=== PATIENT | female | born 2000 | race African-American/Black ===

== ENCOUNTER 2024-04-13 01:31 | Inpatient (IN) | payer MEDICAID, OTHER ==
[~2024-04-13] VITALS: Ht 157.5 cm; Wt 82.4 kg
[2024-04-13] MEDS ORDERED: ALBUTEROL SULF 2.5 MG/0.5ML(0.5%) NEB SOLN NEB ONE (01:45)
[2024-04-13] MEDS: IPRATROPIUM BROM 0.5 MG/2.5ML INH SOL NEB ONE ×2 (02:09→02:58)
[2024-04-13] MEDS: LEVALBUTEROL HCL 1.25 MG/3 ML NEB ONE ×2 (02:09→03:12)
[2024-04-13] MEDS: methylPREDNISolone SOD SUCC 125 MG/2 ML VL IM ONE (02:22)
[2024-04-13] MEDS: AZITHROMYCIN 250 MG TAB PO ONE (02:23)
[2024-04-13] MEDS: LEVALBUTEROL HCL 1.25 MG/3 ML NEB NEB STA (02:59)
[2024-04-13] MEDS: IPRATROPIUM BROM 0.5 MG/2.5ML INH SOL ONE (03:12)
[2024-04-13 04:10] VITALS: BP 123/82; TEMP 98.2
[2024-04-13 04:38] LABS: Urine Bacteria None Seen /hpf (None Seen)
[2024-04-13] MEDS: METOPROLOL TARTRATE 1MG/1ML-5ML VIAL IV ONE (04:45)
[2024-04-13] MEDS ORDERED: ONDANSETRON HCL 4 MG/2 ML VIAL IV PRN (04:45)
[2024-04-13] MEDS ORDERED: MORPHINE SULFATE INJ 2 MG/ml SYRG IV PRN (04:45)
[2024-04-13] MEDS ORDERED: NITROGLYCERIN 0.4 MG SL TAB SL PRN (04:45)
[2024-04-13] MEDS ORDERED: ACETAMINOPHEN 325 MG TAB PO PRN (04:45)
[2024-04-13 04:54] LABS: Urine Blood Negative /uL (Negative); Urine Clarity Clear (Clear); Urine Color Colorless (Yellow); Urine Protein, UAD Negative (Negative); Urine Specific Gravity 1.006 (1.001-1.035); Urine Urobilinogen Normal (Negative); Urine WBC <1 /hpf (0 - 5)
[2024-04-13 04:56] LABS: Amphetamine Screen, Urine Neg (NEGATIVE); Barbiturate Scree,Urine Neg (NEGATIVE); Benzodiazephine Screen, Urine Neg (NEGATIVE)
[2024-04-13 04:57] LABS: Cannabinoid Screen, Urine Neg (NEGATIVE); Opiate Scree,Urine Neg (NEGATIVE); Phencyclidine Screen, Urine Neg (NEGATIVE)
[2024-04-13 05:15] VITALS: PULSE 122; RESP 24; O2SAT 92
[2024-04-13 05:23] LABS: Cocaine Screen, Urine Neg (NEGATIVE)
[2024-04-13] MEDS ORDERED: LEVALBUTEROL HCL 1.25 MG/3 ML NEB NEB SCH (06:00)
[2024-04-13] MEDS ORDERED: SODIUM CHLOR 0.9% PF (SALINE LOCK) 10ML VIAL/SYR IV SCH (06:00)
[2024-04-13] MEDS ORDERED: ALBUTEROL SULF 2.5 MG/0.5ML(0.5%) NEB SOLN NEB PRN (06:00)
[2024-04-13] MEDS ORDERED: THROAT LOZENGES(CEPASTAT) MT PRN (06:00)
[2024-04-13 06:44] LABS: Alanine Aminotransferase 14 U/L (7-40); Albumin 4.8 g/dL (3.2-4.8); Alkaline Phosphatase 94 U/L (46-116); Anion Gap 10 (5-15); Aspartate Aminotransferase 14 U/L (13-40); BUN/Creatinine Ratio 7.2 (10.0-20.0); Bilirubin, Total 0.4 mg/dL (0.2-1.0); Blood Urea Nitrogen 7 mg/dL (9-23); Calcium 10.1 mg/dL (8.7-10.4); Carbon Dioxide 21 mmol/L (20-31); Chloride 109 mmol/L (98-107); Glucose 113 mg/dL (74-106); Potassium 3.5 mmol/L (3.5-5.1); Sodium 140 mmol/L (136-145); Total Protein 7.8 g/dL (5.7-8.2)
[2024-04-13] MEDS ORDERED: predniSONE 20 MG TAB PO SCH (10:00)
== END 2024-04-13 05:55 | disposition left against medical advice (07) | DRG 133 ==
LOC: ER 01:31 → TELE 04:35
PROVIDERS: ADMIT Internal Medicine; ATTEND Internal Medicine
DX: J96.01 Acute respiratory failure with hypoxia (principal); J45.901 Unspecified asthma with (acute) exacerbation; E66.9 Obesity, unspecified; J06.9 Acute upper respiratory infection, unspecified; Z82.5 Family history of asthma and other chronic lower respiratory diseases; Z68.33 Body mass index [BMI] 33.0-33.9, adult
CPT/HCPCS: 36415; 71045; 80053; 80307; 81001; 81025; 82306; 82607; 83036; 84443; 84702; 85379; 94640; 96372; 99291; G0378

== ENCOUNTER 2024-04-20 20:56 | Emergency (ER) | payer MEDICAID ==
[~2024-04-20] VITALS: Ht 157.5 cm; Wt 80.5 kg
[2024-04-20 21:47] VITALS: BP 147/88; PULSE 139; RESP 18; O2SAT 91
--- NOTE | 2024-04-20 21:48 | ED.PDOC ---
SOB-HPI HPI Comments HPI: Poor Historian. 23-year-old female presents to the emergency department for evaluation of worsening shortness of breath/asthma for the last week that got worse in the last 2 hours. Her pulse ox here initially was 89% at room air. Patient has associated cough and congestion. Patient was admitted to the hospital approximately a week ago and she left against medical advice without any medications. Denies any other acute symptoms. Past Medcial History: Asthma Past Surgical History: Denies any REVIEW OF SYSTEMS: CONSTITUTIONAL: Denies acute: fever, diaphoresis, chills, generalized weakness. HEAD: Denies acute: headache, photophobia Eyes: Denies acute: Double vision, vision loss, eye pain, eye discharge. EARS: Denies acute: tinnitus, hearing loss, ear discharge, ear pain, THROAT: Denies acute: sore throat, swelling, difficulty swallowing , pain with swallowing, change in voice. NECK: Denies acute: neck pain, neck swelling, stiff neck. HEART: Denies acute : chest pain, palpitations, LUNGS: Denies acute: wheezing, hemoptysis ABDOMEN: Denies acute: abdominal pain, Nausea, Vomiting, diarrhea, melena , hematemesis, hematochezia SKIN: Denies acute: rash, redness, lesions, itchiness. EXTREMITIES: Denies acute: calf pain, numbness, tingling, weakness, denies pain in extremity. Denies acute: Low back pain. Neuro: Denies acute: focal neurological deficit, motor or sensory focal neurological deficit, tremors, seizure like activity, confusion, dizziness, change in mental status, loss of bowel or bladder function, cauda equina like symptoms. : Denies acute: dysuria, hematuria, flank pain, increase in urinary frequency. PSYCH: Denies acute: hallucination, suicidal ideation, homicidal ideation. FEMALE: Denies acute: abnormal vaginal bleeding, foul odor, unusual discharge. PHYSICAL EXAM: General: no acute distress, awake and alert. Head: normocephalic, atraumatic. Neck: supple, trachea is midline, no swelling. Throat: Normal phonation. Eyes:, no erythema, no purulent discharge, no proptosis, no icterus. Heart: regular tachycardic, no significant murmur appreciated. Lungs: Mild apparent respiratory distress, Able to speak in full sentences. Bilateral wheezing, bilateral rhonchi, no crackles. No stridors Abdomen: non tender to palpation, non distended, soft, no guarding, no rebound, + bowel sounds. Neuro: Awake, Alert, oriented to name, self, situation, follows commands GCS=15. Speech is normal. Skin: no petechia, no purpura, no cyanosis, non-pale, not jaundice. Lower extremities: --no - Pitting edema no deformity, no focal swelling, no calf TTP. Makes eye contact. moves all four extremities. Face: no apparent facial droop. Ambulating in the ED independently. 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 Asthma, Cardiac tamponade, infection.) X-Ray, Labs, Meds, VS Vital Signs Date Time Temp Pulse Resp B/P (MAP) Pulse Ox O2 Delivery O2 Flow Rate FiO2 04/21/24 01:28 20 90 Room Air* 0 21 04/20/24 22:03 22 95 Nasal Cannula* 3 32 04/20/24 21:47 139 18 147/88 (107) 91 04/20/24 21:47 139 18 91 Nasal Cannula* 2 28 04/20/24 21:25 98.8 139 18 147/88 (107) 91 04/20/24 21:25 24 91 Room Air* 0 21 Lab Test 04/20/24 23:00 04/20/24 22:05 04/20/24 21:52 Range/Units Troponin I High Sensitivity < 3 L < 3 L </=34 ng/L Urine Color Colorless Yellow Urine Clarity Clear Clear Urine pH 6.0 5.0-9.0 Urine Specific [place] 1.013 1.001-1.035 Urine Protein Negative Negative Urine Ketones 1+ H Negative Urine Blood Negative Negative /uL Urine Nitrite Negative Negative Urine Bilirubin Negative Negative Urine Urobilinogen Normal Negative mg/dL Urine Leukocyte Esterase 2+ Negative /uL Urine RBC 2 0 - 4 /hpf Urine WBC 15 0 - 5 /hpf Urine Squamous Epithelial Cells Few <5 /hpf Urine Bacteria None seen None Seen /hpf Urine Mucus Few None Seen Urine Glucose Normal Normal mg/dL Urine Opiates Screen Neg NEGATIVE Urine Fentanyl Screen Neg NEGATIVE Urine Barbiturates Screen Neg NEGATIVE Urine Phencyclidine Screen Neg NEGATIVE Urine Amphetamines Screen Neg NEGATIVE Urine Benzodiazepines Screen Neg NEGATIVE Urine Cocaine Screen Neg NEGATIVE Urine Cannabinoids Screen Neg NEGATIVE White Blood Count 7.1 4.4-10.8 10^3/uL Red Blood Count 5.20 4.0-5.20 10^6/uL Hemoglobin 15.0 12.2-16.2 g/dL Hematocrit 44.6 36.0-46.0 % Mean Corpuscular Volume 85.8 80.0-100.0 fL Mean Corpuscular Hemoglobin 28.9 28.0-32.0 pg Mean Corpuscular Hemoglobin Concent 33.6 32.0-36.0 g/dL Red Cell Distribution Width 15.4 H 11.8-14.3 % Platelet Count 273 140-450 10^3/uL Mean Platelet Volume 9.9 6.9-10.8 fL Neutrophils (%) (Auto) 64.6 37.0-80.0 % Lymphocytes (%) (Auto) 24.2 10.0-50.0 % Monocytes (%) (Auto) 5.2 0.0-12.0 % Eosinophils (%) (Auto) 5.2 0.0-7.0 % Basophils (%) (Auto) 0.8 0.0-2.0 % Neutrophils # (Auto) 4.6 1.6-8.6 10 ^3/uL Lymphocytes # (Auto) 1.7 0.4-5.4 10 ^3/uL Monocytes # (Auto) 0.4 0-1.3 10 ^3/uL Eosinophils # (Auto) 0.4 0-0.8 10 ^3/uL Basophils # (Auto) 0.1 0-0.2 10 ^3/uL Nucleated Red Blood Cells 0.2 % Sodium Level 139 136-145 mmol/L Potassium Level 3.9 3.5-5.1 mmol/L Chloride Level 107 98-107 mmol/L Carbon Dioxide Level 23 20-31 mmol/L Anion Gap 9 5-15 Blood Urea Nitrogen 10 9-23 mg/dL Creatinine 1.01 0.550-1.02 mg/dL Glomerular Filtration Rate Calc 81 >90 mL/min BUN/Creatinine Ratio 9.9 L 10.0-20.0 Serum Glucose 93 74-106 mg/dL Calcium Level 10.3 8.7-10.4 mg/dL Magnesium Level 2.1 1.6-2.6 mg/dL Total Bilirubin 0.4 0.2-1.0 mg/dL Aspartate Amino Transferase (AST) 15 13-40 U/L Alanine Aminotransferase (ALT) 15 7-40 U/L Alkaline Phosphatase 103 46-116 U/L B-Type Natriuretic Peptide < 0 0-100 pg/mL Total Protein 8.6 H 5.7-8.2 g/dL Albumin 5.2 H 3.2-4.8 g/dL Beta HCG, Quantitative < 0.0 L 1.5-4.2 mIU/mL Current Medications Medications (Trade) Dose Ordered Sig/Neno Route Start Time Stop Time Status Last Admin Albuterol (Ventolin Medneb) 2.5 mg ONCE ONCE NEB 04/20/24 21:45 04/20/24 21:46 DC 04/20/24 22:02 Ipratropium [place] (Atrovent Medneb) 1 mg ONCE ONCE NEB 04/20/24 21:45 04/20/24 21:46 DC 04/20/24 22:02 Methylprednisolone Sodium Succinate (Solu Medrol) 125 mg ONCE ONCE IV 04/20/24 21:45 04/20/24 21:46 DC 04/20/24 22:29 Sodium Chloride 1,000 ml @ 1,000 mls/hr Q1H ONCE IV 04/20/24 21:45 04/20/24 22:44 DC 04/20/24 22:29 Albuterol (Ventolin Medneb) 2.5 mg ONCE ONCE NEB 04/21/24 01:15 04/21/24 01:16 DC 04/21/24 01:27 Ipratropium [place] (Atrovent Medneb) 1 mg ONCE ONCE NEB 04/21/24 01:15 04/21/24 01:16 DC 04/21/24 01:27 Time of 1ST Reevaluation: 01:13 Reevaluation 1ST: Improved Time of 2ND Reevaluation: 01:47 (Patient was reassessed again her pulse ox is 91% at rest after the 2nd breathing treatment. I suspect patient's pulse ox will drop by minimal movement. Patient is still tachycardic in the 130s. We offered the patient admission to the hospital but she refused and wants to leave against medical advice.) Reevaluation 2ND: Unchanged Patient Education/Counseling: Diagnosis, Treatment Family Education/Counseling: No Family Present Comments Patient was offered admission to the hospital but she wants to be discharged home. She feels significantly better. She has been without her medication for awhile. She has a follow up appointment coming up next week Patient is leaving against medical advice. Patient presented with the above HPI.--asthma/dyspnea----workup was initiated. patient was found with the above mentioned diagnosis. Patient was given: DuoNeb treatment and Solu-Medrol. Patient is said to leave against medical advice. All the reports of any imaging studies that were ordered by myself were reviewed by myself. Departure 1 Departure Time of Disposition: 00:24 Impression: Primary Impression: Acute asthma exacerbation Additional Impressions: Tachycardia Left against medical advice Disposition: 07 LEFT AGAINST MEDICAL ADVICE Condition: Guarded Additional Instructions: You are leaving against medical advice. Seek medical attention [facility]. Return to the emergency department if you change your mind. Take your medications as prescribed. Follow up with the PCP [facility]. e-Prescriptions Prednisone (Prednisone) 20 Mg Tab 20 MG PO DAILY for 5 Days, #5 TAB Prov: JUANA NORTON DO 04/21/24 Albuterol Sulfate (Albuterol Sulfate Hfa) 108 Mcg/Act Aer 108 MCG IN Q4HPRN PRN for 20 Days, #1 AER Prov: JUANA NORTON DO 04/21/24 Discharged With: Self Critical Care Note Critical Care Time?: Yes (45 min-critical care time only) Heart Score Heart Score: Heart Score Response (Comments) Value History N/A 0 EKG N/A 0 Age N/A 0 Risk Factors N/A 0 Troponin N/A 0 Total 0 JUANA NORTON DO Apr 20, 2024 21:48
[2024-04-20] MEDS: ALBUTEROL SULF 2.5 MG/0.5ML(0.5%) NEB SOLN NEB ONE (22:02)
[2024-04-20] MEDS: IPRATROPIUM BROM 0.5 MG/2.5ML INH SOL NEB ONE (22:02)
[2024-04-20 22:11] LABS: Basophils # (auto) 0.1 10 ^3/uL (0-0.2); Basophils % (auto) 0.8 % (0.0-2.0); Eosinophils # (auto) 0.4 10 ^3/uL (0-0.8); Eosinophils % (auto) 5.2 % (0.0-7.0); Hematocrit 44.6 % (36.0-46.0); Lymphocytes # (auto) 1.7 10 ^3/uL (0.4-5.4); Lymphocytes % (auto) 24.2 % (10.0-50.0); Mean Corpuscular Hemoglobin 28.9 pg (28.0-32.0); Mean Corpuscular Hgb Conc. 33.6 g/dL (32.0-36.0); Mean Corpuscular Volume 85.8 fL (80.0-100.0); Monocytes # (auto) 0.4 10 ^3/uL (0-1.3); Monocytes % (auto) 5.2 % (0.0-12.0); Neutrophils # (auto) 4.6 10 ^3/uL (1.6-8.6); Neutrophils % (auto) 64.6 % (37.0-80.0); Nucleated Red Blood Cells % 0.2 %; Platelet Count (auto) 273 10^3/uL (140-450); Red Cell Distribution Width 15.4 % (11.8-14.3); White Blood Cell 7.1 10^3/uL (4.4-10.8)
[2024-04-20 22:17] LABS: Alanine Aminotransferase 15 U/L (7-40); Albumin 5.2 g/dL (3.2-4.8); Alkaline Phosphatase 103 U/L (46-116); Anion Gap 9 (5-15); Aspartate Aminotransferase 15 U/L (13-40); BUN/Creatinine Ratio 9.9 (10.0-20.0); Blood Urea Nitrogen 10 mg/dL (9-23); Calcium 10.3 mg/dL (8.7-10.4); Carbon Dioxide 23 mmol/L (20-31); Chloride 107 mmol/L (98-107); Glucose 93 mg/dL (74-106); Magnesium 2.1 mg/dL (1.6-2.6); Potassium 3.9 mmol/L (3.5-5.1); Sodium 139 mmol/L (136-145)
[2024-04-20 22:18] LABS: Bilirubin, Total 0.4 mg/dL (0.2-1.0); Total Protein 8.6 g/dL (5.7-8.2)
[2024-04-20] MEDS: methylPREDNISolone SOD SUCC 125 MG/2 ML VL IV ONE (22:29)
[2024-04-20] MEDS: SODIUM CHLORIDE 0.9% 1,000 ML IV ONE (22:29)
--- NOTE | 2024-04-20 23:23 | DVH ---
CHEST RADIOGRAPH Indication:sob Technique: Single frontal view of the chest was obtained Comparison: XY CHEST XRAY 1 VIEW on DOS: 04/13/24 FINDINGS: Lines and Tubes: None Lungs: No focal consolidation. Pleura: No effusion. No pneumothorax. Cardiomediastinal contours: Unremarkable Bones: No acute osseous abnormality. IMPRESSION: No acute cardiopulmonary disease.
[2024-04-21 00:14] LABS: Urine Bacteria None Seen /hpf (None Seen)
[2024-04-21 00:23] LABS: Urine Blood Negative /uL (Negative); Urine Clarity Clear (Clear); Urine Color Colorless (Yellow); Urine Mucus FEW (None Seen); Urine Protein, UAD Negative (Negative); Urine Specific Gravity 1.013 (1.001-1.035); Urine Urobilinogen Normal (Negative); Urine WBC 15 /hpf (0 - 5)
[2024-04-21 00:29] LABS: Amphetamine Screen, Urine Neg (NEGATIVE); Barbiturate Scree,Urine Neg (NEGATIVE); Benzodiazephine Screen, Urine Neg (NEGATIVE); Cannabinoid Screen, Urine Neg (NEGATIVE); Cocaine Screen, Urine Neg (NEGATIVE); Opiate Scree,Urine Neg (NEGATIVE); Phencyclidine Screen, Urine Neg (NEGATIVE)
[2024-04-21] MEDS ORDERED: PRED20TA2 PO (00:34)
[2024-04-21] MEDS ORDERED: ALBU108A5 IN (00:34)
[2024-04-21] MEDS: ALBUTEROL SULF 2.5 MG/0.5ML(0.5%) NEB SOLN ONE (01:23)
[2024-04-21] MEDS: IPRATROPIUM BROM 0.5 MG/2.5ML INH SOL ONE (01:23)
[2024-04-21] MEDS: ALBUTEROL SULF 2.5 MG/0.5ML(0.5%) NEB SOLN NEB ONE (01:27)
[2024-04-21] MEDS: IPRATROPIUM BROM 0.5 MG/2.5ML INH SOL NEB ONE (01:27)
[2024-04-21 01:28] VITALS: RESP 20; O2SAT 90
== END 2024-04-21 01:46 | disposition left against medical advice (07) ==
LOC: ER 20:56
DX: J45.901 Unspecified asthma with (acute) exacerbation (principal); R10.2 Pelvic and perineal pain; R00.0 Tachycardia, unspecified; Z53.29 Procedure and treatment not carried out because of patient's decision for other reasons
CPT/HCPCS: 36415; 71045; 80053; 80307; 81001; 83735; 83880; 84484; 84702; 85025; 94640; 96361; 96374; 99284; J2919; J7030

== ENCOUNTER 2024-04-22 11:28 | Emergency (ER) | payer MEDICAID ==
[~2024-04-22] VITALS: Ht 157.5 cm; Wt 80.5 kg
[~2024-04-22 11:28] MED LIST: ALBU108A5 IN; PRED20TA2 PO
[2024-04-22] MEDS: IPRATROPIUM BROM 0.5 MG/2.5ML INH SOL ONE (12:01)
[2024-04-22] MEDS: methylPREDNISolone SOD SUCC 125 MG/2 ML VL IM ONE (12:27)
[2024-04-22] MEDS: IPRATROPIUM BROM 0.5 MG/2.5ML INH SOL HHN ONE (12:29)
[2024-04-22] MEDS: ALBUTEROL SULF 2.5 MG/0.5ML(0.5%) NEB SOLN HHN ONE (12:30)
[2024-04-22 12:31] VITALS: BP 100/69; PULSE 80; RESP 20; TEMP 98.1; O2SAT 99
== END 2024-04-22 13:43 | disposition home or self-care (01) ==
LOC: ER 11:28
DX: J45.901 Unspecified asthma with (acute) exacerbation (principal)
CPT/HCPCS: 94640; 96372; 99283; J2919

== ENCOUNTER 2025-04-16 18:25 | Inpatient (IN) | payer MEDICAID ==
[~2025-04-16] VITALS: Ht 157.5 cm; Wt 82.1 kg
[2025-04-16] MEDS: IPRATROPIUM BROM 0.5 MG/2.5ML INH SOL NEB ONE (18:48)
[2025-04-16] MEDS: ALBUTEROL SULF 2.5 MG/0.5ML(0.5%) NEB SOLN NEB ONE ×2 (18:48→21:24)
--- NOTE | 2025-04-16 19:35 | DVH ---
CHEST RADIOGRAPH Indication: SHORTNESS OF BREATH Technique: Frontal and lateral view of the chest was obtained Comparison: XY CHEST PORTABLE on DOS: 04/20/24, XY CHEST XRAY 1 VIEW on DOS: 04/13/24 FINDINGS: Lines and Tubes: None Lungs: Increased interstitial prominence. This may represent pulmonary vascular congestion and/or vir al pneumonia. Pleura: No effusion. No pneumothorax. Cardiomediastinal contours: Unremarkable Bones: Unremarkable IMPRESSION: Increased interstitial prominence. This may represent pulmonary vascular congestion and/or viral pneumonia.
[2025-04-16 19:46] VITALS: PULSE 128; RESP 24; O2SAT 93
[2025-04-16 20:28] LABS: Hematocrit 45.9 % (36.0-46.0); Hemoglobin 15.4 g/dL (12.2-16.2); Mean Corpuscular Hemoglobin 30.3 pg (28.0-32.0); Mean Corpuscular Volume 90.2 fL (80.0-100.0); Nucleated Red Blood Cells % 0.1 %
[2025-04-16 20:36] LABS: Sodium 143 mmol/L (136-145)
[2025-04-16 20:37] LABS: Anion Gap 14 (5-15); Calcium 9.2 mg/dL (8.7-10.4)
--- NOTE | 2025-04-16 20:39 | ED.PDOC ---
History of Present Illness HPI Comments 24 y/o F presents with boyfriend for c/c of shortness of breath. Patient reports on history of asthma with at-home albuterol inhaler and nebulizer use and having sudden and unprovoked onset of asthma exacerbation, today. She comments on using her at-home inhaler 3x, today, with no relief or improvement. Patient reports associated recent nonproductive cough and lower back pain. No endorsed known sick contact exposure, strenuous activities, stressors, travel, or further pertinent medical or surgical history. Denial of any chest pain, congestion, fever, chills, or additional acute symptoms. Upon arrival to ED, patient had a temperature of 99.7 F, pulse rate of 132, respiratory rate 24, blood pressure 125/94, and a pulse ox 90% on room air. At time of assessment, patient was on 3 L of oxygen via nasal canula. REVIEW OF SYSTEMS: General: No fever, no chills, or fatigue HEENT: No sore throat, no earache, no congestion, no neck pain. Cardiac: No chest pain. No palpitations. Lungs: Shortness of breath, nonproductive cough GI: No nausea, no vomiting, no diarrhea, no constipation, no abdominal pain : No dysuria, frequency, or urgency. No hematuria. Musculoskeletal: Lower back pain, no joint pain, no joint swelling, no extremity edema. Skin: No rash, no itching. Neuro: No headache, no dizziness, no weakness PHYSICAL EXAM: General: Awake, alert and oriented. No acute distress. Skin: Skin in warm, dry and intact. Appropriate color for ethnicity. HEENT: The head is normocephalic and atraumatic. Conjunctivae are clear without exudates or hemorrhage. Sclera is non-icteric. EOM are intact. No signs of nystagmus. Eyelids are normal in appearance without swelling or lesions. Oral mucosa is pink and moist Neck: The neck is supple with normal range of motion. No JVD. Cardiac: Heart rate and rhythm are normal. No murmurs, gallops, or rubs are auscultated. Respiratory: Wheezing in bilateral lung paige. Otherwise, no signs of respiratory distress. Lung sounds are clear in all lobes bilaterally without rales or rhonchi. Abdominal: Abdomen is soft, non-tender without distention, guarding or rigidity. Bowel sounds are present and normoactive in all four quadrants. Extremities: Upper and lower extremities are atraumatic in appearance without deformity or edema. Neurological: The patient is awake, alert and oriented to person, place, and time with normal speech. Speech is clear. There is no facial asymmetry. Psychiatric: Appropriate mood and affect. Good judgement and insight. Chief Complaint: Asthma Time Seen by MD: 19:45 Reviewed Notes: Nurses Notes, Medications, Allergies Allergies: Coded Allergies: NO KNOWN ALLERGIES (Unverified , 04/13/24) Home Meds Active Scripts Prednisone (Prednisone) 20 Mg Tab, 20 MG PO DAILY for 4 Days, #4 MG Prov:RACHELE DE LUNA MD 04/16/25 Albuterol Sulfate (Albuterol Sulfate) 0.083 % Neb, 1 VIAL NEB Q4HPRN PRN for 5 Days, #5 VIAL Prov:RACHELE DE LUNA MD 04/16/25 Prednisone (Prednisone) 20 Mg Tab, 20 MG PO DAILY for 5 Days, #5 TAB Prov:JUANA NORTON DO 04/21/24 Albuterol Sulfate (Albuterol Sulfate Hfa) 108 Mcg/Act Aer, 108 MCG IN Q4HPRN PRN for 20 Days, #1 AER Prov:JUANA NORTON DO 04/21/24 Information Source: Patient Mode of Arrival: Ambulatory Severity: Moderate Timing: Hours Duration: Since onset Prehospital treatment: Breathing Tx (At-home prescribed medications) Past Medical History PAST MEDICAL HISTORY: Asthma Surgical History: Denies all surgeries SNOW FENCE ERECTOR History: Denies all SNOW FENCE ERECTOR Hx Family History Family History: Unknown Social History Smoker: Non-Smoker Alcohol: Denies ETOH Use Drugs: Denies Drug Use Lives In: Home Was a procedure done? Was a procedure done?: No Differential Dx Considerations may include: Differential diagnoses considered includebut arenot limited to acute Bronchitis, Asthma, COPD, Pneumothorax, PE, CHF, Pulmonary HTN, Anemia, CO Poisoning, Methemoglobinemia, Hyperventilation, Metabolic Acidosis, Pulmonary Edema, Pneumonia, ACS, Pericardial Tamponade, Anxiety, other X-Ray, Labs, Meds, VS Vital Signs Date Time Temp Pulse Resp B/P (MAP) Pulse Ox O2 Delivery O2 Flow Rate FiO2 04/16/25 21:25 20 92 Nasal Cannula* 2 28 04/16/25 19:46 128 24 93 Nasal Cannula* 2 28 04/16/25 19:45 99.8 134 24 141/90 (107) 92 99.8 04/16/25 18:49 20 96 Nasal Cannula* 3 32 04/16/25 18:28 99.7 132 24 125/94 90 99.7 Lab Test 04/16/25 20:19 04/16/25 20:06 Range/Units Influenza Type A Antigen Negative Negative Influenza Type B Antigen Negative Negative SARS-CoV-2 Antigen (Rapid) Negative NEGATIVE White Blood Count 7.0 4.4-10.8 10^3/uL Red Blood Count 5.08 4.0-5.20 10^6/uL Hemoglobin 15.4 12.2-16.2 g/dL Hematocrit 45.9 36.0-46.0 % Mean Corpuscular Volume 90.2 80.0-100.0 fL Mean Corpuscular Hemoglobin 30.3 28.0-32.0 pg Mean Corpuscular Hemoglobin Concent 33.6 32.0-36.0 g/dL Red Cell Distribution Width 15.4 H 11.8-14.3 % Platelet Count 193 140-450 10^3/uL Mean Platelet Volume 10.3 6.9-10.8 fL Neutrophils (%) (Auto) 84.6 H 37.0-80.0 % Lymphocytes (%) (Auto) 9.2 L 10.0-50.0 % Monocytes (%) (Auto) 4.5 0.0-12.0 % Eosinophils (%) (Auto) 1.2 0.0-7.0 % Basophils (%) (Auto) 0.5 0.0-2.0 % Neutrophils # (Auto) 5.9 1.6-8.6 10 ^3/uL Lymphocytes # (Auto) 0.6 0.4-5.4 10 ^3/uL Monocytes # (Auto) 0.3 0-1.3 10 ^3/uL Eosinophils # (Auto) 0.1 0-0.8 10 ^3/uL Basophils # (Auto) 0 0-0.2 10 ^3/uL Nucleated Red Blood Cells 0.1 % Sodium Level 143 136-145 mmol/L Potassium Level 3.5 3.5-5.1 mmol/L Chloride Level 110 H 98-107 mmol/L Carbon Dioxide Level 19 L 20-31 mmol/L Anion Gap 14 5-15 Blood Urea Nitrogen 7 L 9-23 mg/dL Creatinine 1.00 0.550-1.02 mg/dL Glomerular Filtration Rate Calc 82 >90 mL/min BUN/Creatinine Ratio 7.0 L 10.0-20.0 Serum Glucose 75 74-106 mg/dL Calcium Level 9.2 8.7-10.4 mg/dL Current Medications Medications (Trade) Dose Ordered Sig/Neno Route Start Time Stop Time Status Last Admin Albuterol (Ventolin Medneb) 2.5 mg ONCE ONCE NEB 04/16/25 18:45 04/16/25 18:46 DC 04/16/25 18:48 Ipratropium [place] (Atrovent Medneb) 0.5 mg ONCE ONCE NEB 04/16/25 18:45 04/16/25 18:46 DC 04/16/25 18:48 Albuterol (Ventolin Medneb) 5 mg ONCE ONCE NEB 04/16/25 21:15 04/16/25 21:16 DC 04/16/25 21:24 Dexamethasone Sodium Phosphate (Decadron Injection) 10 mg ONCE ONCE IM 04/16/25 21:15 04/16/25 21:16 DC 04/16/25 21:30 Ketorolac Tromethamine (Toradol Injection) 30 mg ONCE ONCE IM 04/16/25 21:15 04/16/25 21:16 DC 04/16/25 21:30 [place] [id number] Ph: [phone] DIAGNOSTIC IMAGING Diagnostic Imaging Report : [id number] Signed PATIENT: GLENIS DURAN ACCT: [id number] UNIT: [id number] : 2000 LOC: ER ROOM / BED: / AGE / SEX: 24 / F ADM STATUS: REG ER SERVICE 174 ORDERING PHYSICIAN: RACHELE DE LUNA MD PROCEDURE(s): CXR2 - CHEST TWO VIEWS ROUTINE REASON: SHORTNESS OF BREATH ORDER NUMBER(s): [id number], ACCESSION NUMBER(s): [id number] CHEST RADIOGRAPH Indication: SHORTNESS OF BREATH Technique: Frontal and lateral view of the chest was obtained Comparison: XY CHEST PORTABLE on DOS: 04/20/24, XY CHEST XRAY 1 VIEW on DOS: 04/13/24 FINDINGS: Lines and Tubes: None Lungs: Increased interstitial prominence. This may represent pulmonary vascular congestion and/or viral pneumonia. Pleura: No effusion. No pneumothorax. Cardiomediastinal contours: Unremarkable Bones: Unremarkable IMPRESSION: Increased interstitial prominence. This may represent pulmonary vascular congestion and/or viral pneumonia. ATED BY: HONG LINTON MD DICTATED DATE/TIME: 04/16/251932 SIGNED BY: HONG LINTON MD SIGNED DATE/TIME: 04/16/251932 CC: Time of 1ST Reevaluation: 20:15 Reevaluation 1ST: Unchanged Patient Education/Counseling: Treatment, Need For Follow Up Family Education/Counseling: Treatment, Need For Follow Up SEPSIS Sepsis Screen Date sepsis recognized/suspect: Apr 16, 2025 Time Sepsis recognized/suspect: 183 Recent Procedure: No On Antibiotic Therapy: No Respiratory Rate >20: Yes Heart Rate >90: Yes Temp<36 C (96.8 F) or >38.3 C: No SBP <90 or MAP <65 mmHG: No New Acute Mental Status Change: No Is the patient on CPAP, BIPAP,: No Physician Orders Chest Two Views Routine (04/16/25 19:08) Vital Signs Date Time Temp Pulse Resp B/P (MAP) Pulse Ox O2 Delivery O2 Flow Rate FiO2 04/16/25 21:25 20 92 Nasal Cannula* 2 28 04/16/25 19:46 128 24 93 Nasal Cannula* 2 28 04/16/25 19:45 99.8 134 24 141/90 (107) 92 99.8 04/16/25 18:49 20 96 Nasal Cannula* 3 32 04/16/25 18:28 99.7 132 24 125/94 90 99.7 Laboratory Tests Test 04/16/25 20:06 White Blood Count 7.0 10^3/uL (4.4-10.8) Medications Medications Dose Ordered Sig/Neno Route Start Time Stop Time Status Last Admin Dose Admin Albuterol 2.5 mg ONCE ONCE NEB 04/16/25 18:45 04/16/25 18:46 DC 04/16/25 18:48 Albuterol 5 mg ONCE ONCE NEB 04/16/25 21:15 04/16/25 21:16 DC 04/16/25 21:24 Dexamethasone Sodium Phosphate 10 mg ONCE ONCE IM 04/16/25 21:15 04/16/25 21:16 DC 04/16/25 21:30 Ipratropium [place] 0.5 mg ONCE ONCE NEB 04/16/25 18:45 04/16/25 18:46 DC 04/16/25 18:48 Ketorolac Tromethamine 30 mg ONCE ONCE IM 04/16/25 21:15 04/16/25 21:16 DC 04/16/25 21:30 Departure 1 Departure Time of Disposition: 21:50 Impression: Primary Impression: Acute asthma Disposition: HOME / SELF CARE / HOMELESS Condition: Stable e-Prescriptions Prednisone (Prednisone) 20 Mg Tab 20 MG PO DAILY for 4 Days, #4 MG Prov: RACHELE DE LUNA MD 04/16/25 Albuterol Sulfate (Albuterol Sulfate) 0.083 % Neb 1 VIAL NEB Q4HPRN PRN for 5 Days, #5 VIAL Prov: RACHELE DE LUNA MD 04/16/25 Discharged With: Significant Other (Boyfriend ) Comments MDM: Patient well-appearing, nontoxic. Patient reports her breathing is improved and back to baseline prior to discharge. Advised prompt follow-up with PCP, return to the ED with any new, worsening or concerning symptoms. Extensive evaluation was performed in attempt to identify or rule out: (See differential diagnosis section) The following tests were ordered, and results were reviewed by me and discussed with patient: (See diagnostic results section) The following test were independently interpreted by me: N/A I reviewed and agreed with the following test results read by other providers: Chest x-ray I reviewed the following notes from the pt's past medical encounters: April 13, 2024, April 20, 2024, and April 22, 2024 encounters for asthma, acute asthma exacerbation, and hypertensive urgency, respectively Decision regarding hospitalization or escalation of hospital level of care: Risks and benefits of admission for further treatment of patient's condition was considered however due to patient's stable condition patient will be discharged to follow up closely or return to care for worsening of condition or inability to follow up. Critical Care Note Critical Care Time?: No Stability Stability form required: No Heart Score Heart Score: Heart Score Response (Comments) Value History N/A 0 EKG N/A 0 Age N/A 0 Risk Factors N/A 0 Troponin N/A 0 Total 0 I personally scribed for RACHELE DE LUNA MD ([email or web address]) on 04/16/25 at 20:39. Electronically submitted by Joey Lindsay ([email or web address]). I personally scribed for RACHELE DE LUNA MD ([email or web address]) on 04/16/25 at 21:35. Electronically submitted by Joey Lindsay ([email or web address]). RACHELE DE LUNA MD Apr 16, 2025 20:39
[2025-04-16 20:42] LABS: BUN/Creatinine Ratio 7.0 (10.0-20.0); Glucose 75 mg/dL (74-106)
[2025-04-16 20:47] LABS: Blood Urea Nitrogen 7 mg/dL (9-23); Carbon Dioxide 19 mmol/L (20-31); Chloride 110 mmol/L (98-107); Potassium 3.5 mmol/L (3.5-5.1)
[2025-04-16 21:06] LABS: COVID19 ANTIGEN SOFIA FIA NEGATIVE (NEGATIVE)
[2025-04-16] MEDS: KETOROLAC TROMETH 30 MG/ML 1ML VIAL IM ONE (21:30)
[2025-04-16] MEDS ORDERED: PRED20TA2 PO (21:55)
[2025-04-16] MEDS ORDERED: ALBU0.084 NEB (21:55)
[2025-04-16] MEDS ORDERED: ACETAMINOPHEN 325 MG TAB PO PRN (23:15)
[2025-04-16] MEDS: SODIUM CHLORIDE 0.9% 1,000 ML IV ONE (23:15)
[2025-04-16] MEDS: SODIUM CHLORIDE 0.9% 1,500 ML IV ONE (23:15)
--- NOTE | 2025-04-16 23:42 | DVHHPRES ---
History of Present Illness Resident Creating Document: GAMA CASTANEDA History of Present Illness Patient is a 24-year-old female with past medical history of asthma, presented to [facility] ED with complaint of shortness of breath, cough and upper back pain that began suddenly around today 5:00 p.m. while sitting at home. This is her 4th episode of asthma exacerbation. She used her inhaler three times and a nebulizer at home without improvement. She reports having flu- like symptoms and a cold two days ago, along with watery diarrhea occurring three times per day for the past three days, which may have triggered the asthma exacerbation. She denies chest pain, congestion, fever, chills, sick contacts, recent travel, stressors, or strenuous activity. No other pertinent medical or surgical history is reported. Upon arrival to ED, patient had a temperature of 99.7 F, pulse rate of 132, respiratory rate 24, blood pressure 125/94, and a pulse ox 90% on room air. At time of assessment, patient was on 2 L of oxygen via nasal canula. The patient was started on breathing treatment and IV fluids. Patient is admitted for further evaluation and management. Pulmonary: Asthma Past Surgical History: None Family History: None ALCOHOL: none Drugs: Marijuana Lives: with Family Past Social History Social & Personal history: Smoking 6 years, <1 pack. Alcohol: denies. Drug: Marijuana 6 years. Review of Systems Review of Systems Eyes: No Pain, No Vision change, No Conjunctivae inflammation, No Eyelid inflammation, No Other, No Redness ENT: No Ear pain, No Ear discharge, No Nose pain, No Nose discharge, No Nose congestion, No Mouth pain, No Mouth swelling, No Throat pain, No Throat swelling, No Other Cardiovascular: No Chest Pain, No Palpitations, No Orthopnea, No Paroxysmal No Dyspnea, No Edema, No Lt Headedness, No Other Respiratory: Cough, No Dry, Shortness of breath, No SOB with exertion, No Wheezing, No Hemoptysis, No Pleuritic Pain, No Sputum, No Other Gastrointestinal: No Nausea, No Vomiting, No Abdominal Pain, Diarrhea, No Constipation, No Melena, No Hematochezia, No Other Genitourinary: No Dysuria, No Frequency, No Incontinence, No Hematuria, No Retention, No Other Musculoskeletal: No other, No neck pain, No shoulder pain, No arm pain, upper back pain, No hand pain, No leg pain, No foot pain Skin: No Rash, No Lesions, No Jaundice, No Bruising, No Other Allergies: Coded Allergies: NO KNOWN ALLERGIES (Unverified , 04/13/24) Exam Vital Signs Vital Signs Date Time Temp Pulse Resp B/P (MAP) Pulse Ox O2 Delivery O2 Flow Rate FiO2 04/16/25 23:05 98.5 107 20 123/90 (101) 94 98.5 04/16/25 21:25 Nasal Cannula* 2 28 Exam General Appearance: Cooperative. Well developed. Well nourished. NAD Head Exam: Normal inspection Neck Exam: Normal inspection. Non-tender. Normal alignment Pulmonary/Respiratory: Chest non-tender. Clear bilateral breath sounds, no crackles, wheezing in bilateral lung paige. Cardiovascular/Chest: Regular rate and rhythm. No murmurs. No JVD. Peripheral Pulses: 2+ Radial (R). 2+ Radial (L). 2+ Pedal (R). 2+ Pedal (L) Abdominal Exam: Normal bowel sounds. Soft. normal abdomen, no visible veins, Nontender. No hepatospenomegaly. No masses Ankle Exam: Negative ankle edema Lower extremities: Negative lower extremity edema Neuro/Mental Status: A&O x4. Coherent. Thoughts/Psych: Normal thought pattern. Appropriate mood and affect. Good judgement and insight Skin Exam: Normal inspection. Normal color. Warm. Dry Labs/Xrays Labs Test 04/16/25 20:19 04/16/25 20:06 Range/Units Influenza Type A Antigen Negative Negative Influenza Type B Antigen Negative Negative SARS-CoV-2 Antigen (Rapid) Negative NEGATIVE White Blood Count 7.0 4.4-10.8 10^3/uL Red Blood Count 5.08 4.0-5.20 10^6/uL Hemoglobin 15.4 12.2-16.2 g/dL Hematocrit 45.9 36.0-46.0 % Mean Corpuscular Volume 90.2 80.0-100.0 fL Mean Corpuscular Hemoglobin 30.3 28.0-32.0 pg Mean Corpuscular Hemoglobin Concent 33.6 32.0-36.0 g/dL Red Cell Distribution Width 15.4 H 11.8-14.3 % Platelet Count 193 140-450 10^3/uL Mean Platelet Volume 10.3 6.9-10.8 fL Neutrophils (%) (Auto) 84.6 H 37.0-80.0 % Lymphocytes (%) (Auto) 9.2 L 10.0-50.0 % Monocytes (%) (Auto) 4.5 0.0-12.0 % Eosinophils (%) (Auto) 1.2 0.0-7.0 % Basophils (%) (Auto) 0.5 0.0-2.0 % Neutrophils # (Auto) 5.9 1.6-8.6 10 ^3/uL Lymphocytes # (Auto) 0.6 0.4-5.4 10 ^3/uL Monocytes # (Auto) 0.3 0-1.3 10 ^3/uL Eosinophils # (Auto) 0.1 0-0.8 10 ^3/uL Basophils # (Auto) 0 0-0.2 10 ^3/uL Nucleated Red Blood Cells 0.1 % Sodium Level 143 136-145 mmol/L Potassium Level 3.5 3.5-5.1 mmol/L Chloride Level 110 H 98-107 mmol/L Carbon Dioxide Level 19 L 20-31 mmol/L Anion Gap 14 5-15 Blood Urea Nitrogen 7 L 9-23 mg/dL Creatinine 1.00 0.550-1.02 mg/dL Glomerular Filtration Rate Calc 82 >90 mL/min BUN/Creatinine Ratio 7.0 L 10.0-20.0 Serum Glucose 75 74-106 mg/dL Calcium Level 9.2 8.7-10.4 mg/dL SEPSIS Sepsis Screen Date sepsis recognized/suspect: Apr 16, 2025 Time Sepsis recognized/suspect: 1831 Recent Procedure: No On Antibiotic Therapy: No Respiratory Rate >20: Yes Heart Rate >90: Yes Temp<36 C (96.8 F) or >38.3 C: No SBP <90 or MAP <65 mmHG: No New Acute Mental Status Change: No Is the patient on CPAP, BIPAP,: No Physician Orders Chest Two Views Routine (04/16/25 19:08) Admit (04/16/25 23:02) Allergies (04/16/25 23:02) Code Status (04/16/25 23:02) Oxygen Per Hour (04/16/25 23:02) Complete Blood Count (04/17/25 04:00) Comprehensive Metabolic Panel (04/17/25 04:00) Condition: Serious (04/16/25 23:02) Acetaminophen Tablet (Tylenol Tablet) (04/16/25 23:15) Oxygen By Nasal Cannula (04/16/25 23:02) Stat Ekg For Chest Pain (04/16/25 23:02) Notify Of Changes From Base (04/16/25 23:02) C Winforms Developer For 24 Hours (04/16/25 23:02) Emergency Dysrhythmia Protocol (04/16/25 23:02) Rhythm Strips Once Every Shift (04/16/25 23:02) Urinalysis (04/16/25 23:02) Drug Screen (04/16/25 23:02) Ipratropium Medneb (Atrovent Medneb) (04/17/25 06:00) Respiratory Culture W/ Gs (04/16/25 23:02) Hepatic Panel (04/16/25 23:02) Magnesium (04/16/25 23:02) Methylprednisolone Sod Succ (Solu Medrol (04/17/25 10:00) Azithromycin 500mg/ 250ml (Zithromax 50 (04/17/25 10:00) Azithromycin 500mg/ 250ml (Zithromax 50 (04/16/25 23:15) Thyroid Stimulating Hormone (04/16/25 23:02) Sodium Chloride 0.9% (04/16/25 23:15) NS (04/16/25 23:15) Regular Diet (04/17/25 Breakfast) Levalbuterol Hcl (Xopenex Medneb) (04/17/25 06:00) Lactic Acid W/ Reflex Order (04/16/25 23:02) Levalbuterol Hcl (Xopenex Medneb) (04/16/25 23:15) Ipratropium Medneb (Atrovent Medneb) (04/16/25 23:15) Budesonide (Inhalation) (Pulmicort) (04/16/25 23:15) Blood Culture (04/16/25 23:02) Vital Signs Date Time Temp Pulse Resp B/P (MAP) Pulse Ox O2 Delivery O2 Flow Rate FiO2 04/16/25 23:05 98.5 107 20 123/90 (101) 94 98.5 04/16/25 21:25 20 92 Nasal Cannula* 2 28 04/16/25 19:46 128 24 93 Nasal Cannula* 2 28 04/16/25 19:45 99.8 134 24 141/90 (107) 92 99.8 04/16/25 18:49 20 96 Nasal Cannula* 3 32 04/16/25 18:28 99.7 132 24 125/94 90 99.7 Laboratory Tests Test 04/16/25 20:06 White Blood Count 7.0 10^3/uL (4.4-10.8) Medications Medications Dose Ordered Sig/Neno Route Start Time Stop Time Status Last Admin Dose Admin Albuterol 2.5 mg ONCE ONCE NEB 04/16/25 18:45 04/16/25 18:46 DC 04/16/25 18:48 2.5 MG Albuterol 5 mg ONCE ONCE NEB 04/16/25 21:15 04/16/25 21:16 DC 04/16/25 21:24 5 MG Dexamethasone Sodium Phosphate 10 mg ONCE ONCE IM 04/16/25 21:15 04/16/25 21:16 DC 04/16/25 21:30 10 MG Ipratropium [place] 0.5 mg ONCE ONCE NEB 04/16/25 18:45 04/16/25 18:46 DC 04/16/25 18:48 0.5 MG Ketorolac Tromethamine 30 mg ONCE ONCE IM 04/16/25 21:15 04/16/25 21:16 DC 04/16/25 21:30 30 MG Assessment/Plan Assessment/Plan Acute asthma exacerbation Acute hypoxic respiratory failure Pneumonia likely due to gram +/- bacterial or viral Sepsis likely due to above Metabolic acidosis Tylenol 650 mg p.o. q6h Azithromycin 500 mg / 250 mL IV Budesonide 0.5 mg neb once Levalbuterol 1.25 MG q4h Ipratropium 0.5 MG q4h Methylprednisone 40 MG IV bid IV NS 100 MLS/HR lactic acid urinalysis TSH Mg hepatic panel Blood culture Sputum culture Diet: Regular Goals of care: Full code, discussed for >16 minutes on 04/16/25 Plan discussed with patient Plan discussed with Dr. Quintero Plan discussed with: Patient My Orders Orders - GAMA CASTANEDA Procedure Category Date Status Time Admit ADMIT 04/16/25 Transmitted 23:02 Allergies KIRBY 04/16/25 Transmitted 23:02 Code Status CODE 04/16/25 Transmitted 23:02 Oxygen Per Hour RT 04/16/25 Transmitted 23:02 Complete Blood Count LAB 04/17/25 Verified 04:00 Comprehensive LAB 04/17/25 Verified Metabolic Panel 04:00 Condition: Serious KIRBY 04/16/25 Transmitted 23:02 Acetaminophen Tablet PHA 04/16/25 Transmitted (Tylenol Tablet) 23:15 Oxygen By Nasal RT 04/16/25 Transmitted Cannula 23:02 Stat Ekg For Chest KIRBY 04/16/25 Transmitted Pain 23:02 Notify Of Changes KIRBY 04/16/25 Transmitted From Base 23:02 C Winforms Developer For [facility] 04/16/25 Transmitted 24 Hours 23:02 Emergency Dysrhythmia KIRBY 04/16/25 Transmitted Protocol 23:02 Rhythm Strips Once KIRBY 04/16/25 Transmitted Every Shift 23:02 Urinalysis LAB 04/16/25 Transmitted 23:02 Drug Screen LAB 04/16/25 Transmitted 23:02 Ipratropium Medneb PHA 04/17/25 Transmitted (Atrovent Medneb) 06:00 Respiratory Culture ADRIÁN 04/16/25 Transmitted W/ Gs 23:02 Hepatic Panel LAB 04/16/25 Transmitted 23:02 Magnesium LAB 04/16/25 Transmitted 23:02 Methylprednisolone PHA 04/17/25 Transmitted Sod Succ (Solu Medrol 10:00 Azithromycin 500mg/ PHA 04/17/25 Transmitted 250ml (Zithromax 50 10:00 Azithromycin 500mg/ PHA 04/16/25 Transmitted 250ml (Zithromax 50 23:15 Thyroid Stimulating LAB 04/16/25 Transmitted Hormone 23:02 Sodium Chloride 0.9% PHA 04/16/25 Transmitted 23:15 NS PHA 04/16/25 Transmitted 23:15 Regular Diet DIET 04/17/25 Transmitted Breakfast Levalbuterol Hcl PHA 04/17/25 Transmitted (Xopenex Medneb) 06:00 Lactic Acid W/ Reflex LAB 04/16/25 Transmitted Order 23:02 Levalbuterol Hcl PHA 04/16/25 Transmitted (Xopenex Medneb) 23:15 Ipratropium Medneb PHA 04/16/25 Transmitted (Atrovent Medneb) 23:15 Budesonide PHA 04/16/25 Transmitted (Inhalation) 23:15 Blood Culture ADRIÁN 04/16/25 Transmitted 23:02 Date of Service: Apr 16, 2025 Billing Provider: DIMA QUINTERO MD Common Visit Codes: [id number] INP/OBS CARE (HIGH) GAMA CASTANEDA RESIDENT Apr 16, 2025 23:42
[2025-04-17] VITALS (18 sets, daily range): BP systolic 114–148; BP diastolic 58–98; PULSE 95–129; RESP 18–27; TEMP 97.5–98.5; O2SAT 92–100
[2025-04-17] MEDS: IPRATROPIUM BROM 0.5 MG/2.5ML INH SOL NEB ONE
[2025-04-17] MEDS: LEVALBUTEROL HCL 1.25 MG/3 ML NEB NEB ONE
[2025-04-17] MEDS: BUDESONIDE (INHALATION) 0.5 MG/2 ML NEB NEB ONE
[2025-04-17 00:25] LABS: Alanine Aminotransferase 16.0 U/L (7-40); Alkaline Phosphatase 93.0 U/L (46-116); Bilirubin, Direct 0.2 mg/dL (<0.3); Bilirubin, Total 0.5 mg/dL (0.2-1.0); Magnesium 2.0 mg/dL (1.6-2.6)
[2025-04-17 00:26] LABS: Albumin 5.1 g/dL (3.2-4.8); Total Protein 8.3 g/dL (5.7-8.2)
[2025-04-17] MEDS: AZITHROMYCIN 500MG/ 250ML 250 ML IV ONE (02:20)
[2025-04-17 04:36] LABS: Hematocrit 43.3 % (36.0-46.0); Hemoglobin 14.9 g/dL (12.2-16.2); Mean Corpuscular Hemoglobin 31.3 pg (28.0-32.0); Mean Corpuscular Volume 90.8 fL (80.0-100.0); Nucleated Red Blood Cells % 0.0 %
[2025-04-17 04:53] LABS: Alanine Aminotransferase 13 U/L (7-40); Alkaline Phosphatase 85 U/L (46-116); Anion Gap 14 (5-15); BUN/Creatinine Ratio 8.2 (10.0-20.0); Bilirubin, Total 0.5 mg/dL (0.2-1.0); Calcium 9.8 mg/dL (8.7-10.4); Potassium 3.6 mmol/L (3.5-5.1); Sodium 140 mmol/L (136-145)
[2025-04-17 04:59] LABS: Albumin 5.1 g/dL (3.2-4.8); Blood Urea Nitrogen 8 mg/dL (9-23); Carbon Dioxide 18 mmol/L (20-31); Chloride 108 mmol/L (98-107); Glucose 201 mg/dL (74-106); Total Protein 8.4 g/dL (5.7-8.2)
[2025-04-17] MEDS: LEVALBUTEROL HCL 1.25 MG/3 ML NEB NEB SCH (06:38)
[2025-04-17] MEDS: IPRATROPIUM BROM 0.5 MG/2.5ML INH SOL NEB SCH (06:38)
[2025-04-17] MEDS: AZITHROMYCIN 500MG/ 250ML 250 ML IV SCH (09:24)
[2025-04-17] MEDS: methylPREDNISolone SOD SUCC 125 MG/2 ML VL IV SCH (09:24)
[2025-04-17] MEDS: MAGNESIUM SULFATE 1GM/100ML 100 ML IV SCH (09:58)
--- NOTE | 2025-04-17 14:01 | DVH ---
Bilateral lower extremity venous duplex Clinical History: Rule out DVT Comparison: None Technique: Duplex Doppler evaluation of the deep venous systems of both lower extremities from the common femora l veins to the popliteal veins including color Doppler and spectral/pulsed waveform analysis was perf ormed. Findings: RIGHT SIDE: The common femoral vein demonstrates appropriate compressibility and waveform variability. There is compressibility/patency of the great saphenous vein at the proximal thigh. The femoral vein demonstrates appropriate compressibility and waveform variability. The deep femoral vein demonstrates appropriate compressibility and waveform variability. The popliteal vein demonstrates appropriate compressibility and waveform variability. There is normal compressibility at the tibioperoneal trunk. LEFT SIDE: The common femoral vein demonstrates appropriate compressibility and waveform variability. There is compressibility/patency of the great saphenous vein at the proximal thigh. The femoral vein demonstrates appropriate compressibility and waveform variability. The deep femoral vein demonstrates appropriate compressibility and waveform variability. The popliteal vein demonstrates appropriate compressibility and waveform variability. There is normal compressibility at the tibioperoneal trunk. Impression: 1. No right or left femoropopliteal venous thrombosis.
--- NOTE | 2025-04-17 14:56 | DVHPNRES ---
Progress Note Date Seen: Apr 17, 2025 Resident Creating Document: JH VALENTINE RESIDENT Medical Necessity Reason Pt with a Central, PICC or Fol: No Subjective Review of Systems Mikaela Vila 24-year-old emale with past medical history of asthma and gallstones presented with complaints of shortness of breath, dizziness, blurriness, cough with yellowish sputum, upper back pain since 2 days. She states that she was in the shower med the symptoms started. She also complains of a cold and 2-3 diarrhea episodes per day since the symptoms started. Patient reports that this is her 4th asthma exacerbation this past year. She denies chest pain, congestion, fever, chills, sick contacts, recent travel, stressors, or strenuous activity. No other pertinent medical or surgical history is reported. PMHx: asthma and gallstones PSHx: Denies surgical history Family history: no relevant family history Social history: denies smoking and alcohol use, admits to marijuana use daily Home medication: albuterol inhaler as needed Allergic history: no known allergies PCP: Dr. Shay Lange General: patient denies fever, fatigue, weaknes, sweating, any recent changes in appetite and weight HEENT: No headaches, visiual changes, hearing loss, tinnitus, nasal congestion and discharge, and sore throat. Cardiovascular: Denies chest pain, palpitations, or claudication. complaints of shortness of breath Respiratory: complaints of cough Gastrointestinal: Denies nausea, vomiting, dysphagia, odynophagia, heartburn, abdominal pain, flatulence, bloating, constipation, change in stool, or blood in stool. complains of diarrhea Genitourinary: No dysuria, hematuria, discharge, frequency, urgency, nocturia, incontinence, and urinary retention. Endocrine: No heat or cold intolerance, polydipsia, polyuria, and polyphagia. Neurological: No dizziness, extremity weakness and numbness, tremors, gait disturbance, seizures, and memory impairment. Complains of upper back pain Psychiatric: Denies depression, anxiety, or insomnia. Musculoskeletal: Denies neck pain, stiffness and swelling, muscle weakness, joint pain, stiffness, swelling, or limited range of motion. Skin: No rashes, itching, skin lesion, changes in hair, nail, skin texture and breast. Hematologic/Lymphatic: Denies easy bruising, bleeding tendencies, or lymph node enlargement. Objective vital signs Vital Sign Date Time Temp Pulse Resp B/P (MAP) Pulse Ox O2 Delivery O2 Flow Rate FiO2 04/17/25 14:00 99.3 123 24 145/92 (109) 95 99.3 04/17/25 13:30 Nasal Cannula* 2 28 Total Intake and Output 04/16/25 04/16/25 04/17/25 15:00 23:00 07:00 Intake Total 1990 ml Balance 1990 ml medications Current Medications Medications Dose Ordered Sig/Neno Route Start Time Stop Time Status Last Admin Dose Admin Acetaminophen 650 mg Q6HP PRN PO 04/16/25 23:15 Ipratropium [place] 0.5 mg Q4HWA [facility] 04/17/25 06:00 04/17/25 13:30 0.5 MG Methylprednisolone Sodium Succinate 40 mg BID IV 04/17/25 10:00 04/17/25 09:24 40 MG Azithromycin 250 ml @ 125 mls/hr DAILY IV 04/17/25 10:00 04/17/25 09:24 125 MLS/HR Levalbuterol HCl 1.25 mg Q4HWA [facility] 04/17/25 06:00 04/17/25 13:30 1.25 MG Examination General Appearance: Alert, Oriented X3, Cooperative, No acute distress HEENT: Atraumatic, PERRLA, EOMI, Mucous membrane moist/pink Respiratory: Wheezing Cardiovascular: Regular rate, Normal S1, Normal S2, No murmurs, no chest wall tenderness Abdominal: Normal bowel sounds, Soft, No tenderness, No hepatospenomegaly, No masses Extremities: No clubbing, No cyanosis, No edema, Normal pulses, No tenderness/swelling Skin: No rashes, No breakdown, No significant lesion Neuro: Normal gait, Normal speech, Strength at 5/5 X4 ext, Normal tone, Sensation intact, Cranial nerves 3-12 NL, Reflexes 2+ Psych/Mental Status: Mental status NL, Mood NL laboratory and microbiology Laboratory Tests 04/17/25 04:15 Test 04/17/25 04:15 Range/Units Serum Glucose 201 H 74-106 mg/dL Problem List/Assessment/Plan Problem List/Assessment/Plan Assessment and plan Acute asthma exacerbation Acute hypoxic respiratory failure Pneumonia likely due to gram +/- bacterial or viral Sepsis likely due to above Tylenol 650 mg p.o. q6h Azithromycin 500 mg / 250 mL IV Budesonide 0.5 mg neb once Levalbuterol 1.25 MG q4h Ipratropium 0.5 MG q4h Methylprednisone 40 MG IV bid IV NS 100 MLS/HR lactic acid urinalysis TSH Mg hepatic panel Blood culture Sputum culture Pulmonology consult History of gallstones No acute exacerbation Follow up with PCP on discharge DIET: Regular diet DVT PROPHYLAXIS: Ambulatory GI PROPHYLAXIS:: Not needed BOWEL REGIMEN: Not needed CODE STATUS: Goal of care discussed for more than 19 minutes, full code DISPOSITION: Med/surge RECONCILED HOME MEDS: None PCP: Dr. Shay Lange Patient's status and plan discussed with the patient. Case discussed with Dr. Patino Plan discussed with: Patient Dietary Evaluation Review Comments: Monitor PO intake, lab values, weight trend, and I/O Expected Outcomes/Goals: Intake to meet >75% estimated needs FU 5-7 days Date of Service: Apr 17, 2025 Billing Provider: SOLOMON PATINO MD Common Visit Codes: [id number] INP/OBS CARE(HIGH) JH VALENTINE RESIDENT Apr 17, 2025 14:56 SOLOMON PATINO MD Apr 23, 2025 18:49
[2025-04-18] VITALS (20 sets, daily range): BP systolic 123–136; BP diastolic 77–94; PULSE 71–127; RESP 18–20; TEMP 97.3–98.6; O2SAT 91–100
[2025-04-18 06:46] LABS: Hematocrit 43.1 % (36.0-46.0); Hemoglobin 14.1 g/dL (12.2-16.2); Mean Corpuscular Hemoglobin 30.3 pg (28.0-32.0); Mean Corpuscular Volume 92.6 fL (80.0-100.0); Nucleated Red Blood Cells % 0.0 %
[2025-04-18 07:04] LABS: Alanine Aminotransferase 14 U/L (7-40); Alkaline Phosphatase 79 U/L (46-116); Anion Gap 15 (5-15); BUN/Creatinine Ratio 7.4 (10.0-20.0); Bilirubin, Total 0.3 mg/dL (0.2-1.0); Calcium 9.4 mg/dL (8.7-10.4); Glucose 105 mg/dL (74-106); Potassium 3.9 mmol/L (3.5-5.1); Sodium 142 mmol/L (136-145); Total Protein 8.0 g/dL (5.7-8.2)
[2025-04-18 07:07] LABS: Albumin 4.8 g/dL (3.2-4.8); Blood Urea Nitrogen 7 mg/dL (9-23); Carbon Dioxide 18 mmol/L (20-31); Chloride 109 mmol/L (98-107)
--- NOTE | 2025-04-18 14:20 | DVHPNRES ---
Progress Note Date Seen: Apr 18, 2025 Resident Creating Document: JH VALENTINE RESIDENT Medical Necessity Reason Pt with a Central, PICC or Fol: No Subjective Review of Systems Patient seen at bedside. Still complains of shortness of breath. Wheezing present [place]aela 24-year-old emale with past medical history of asthma and gallstones presented with complaints of shortness of breath, dizziness, blurriness, cough with yellowish sputum, upper back pain since 2 days. She states that she was in the shower med the symptoms started. She also complains of a cold and 2-3 diarrhea episodes per day since the symptoms started. Patient reports that this is her 4th asthma exacerbation this past year. She denies chest pain, congestion, fever, chills, sick contacts, recent travel, stressors, or strenuous activity. No other pertinent medical or surgical history is reported. PMHx: asthma and gallstones PSHx: Denies surgical history Family history: no relevant family history Social history: denies smoking and alcohol use, admits to marijuana use daily Home medication: albuterol inhaler as needed Allergic history: no known allergies PCP: Dr. Shay Lange General: patient denies fever, fatigue, weaknes, sweating, any recent changes in appetite and weight HEENT: No headaches, visiual changes, hearing loss, tinnitus, nasal congestion and discharge, and sore throat. Cardiovascular: Denies chest pain, palpitations, or claudication. complaints of shortness of breath Respiratory: complaints of cough Gastrointestinal: Denies nausea, vomiting, dysphagia, odynophagia, heartburn, abdominal pain, flatulence, bloating, constipation, change in stool, or blood in stool. complains of diarrhea Genitourinary: No dysuria, hematuria, discharge, frequency, urgency, nocturia, incontinence, and urinary retention. Endocrine: No heat or cold intolerance, polydipsia, polyuria, and polyphagia. Neurological: No dizziness, extremity weakness and numbness, tremors, gait disturbance, seizures, and memory impairment. Complains of upper back pain Psychiatric: Denies depression, anxiety, or insomnia. Musculoskeletal: Denies neck pain, stiffness and swelling, muscle weakness, joint pain, stiffness, swelling, or limited range of motion. Skin: No rashes, itching, skin lesion, changes in hair, nail, skin texture and breast. Hematologic/Lymphatic: Denies easy bruising, bleeding tendencies, or lymph node enlargement. Objective vital signs Vital Sign Date Time Temp Pulse Resp B/P (MAP) Pulse Ox O2 Delivery O2 Flow Rate FiO2 04/18/25 13:00 98.2 116 20 126/85 (99) 93 98.2 04/18/25 10:23 Nasal Cannula* 1 24 Total Intake and Output 04/17/25 04/17/25 04/18/25 15:00 23:00 07:00 Intake Total 350 ml 700 ml 400 ml Balance 350 ml 700 ml 400 ml medications Current Medications Medications Dose Ordered Sig/Neno Route Start Time Stop Time Status Last Admin Dose Admin Acetaminophen 650 mg Q6HP PRN PO 04/16/25 23:15 Ipratropium [place] 0.5 mg Q4HWA [facility] 04/17/25 06:00 04/18/25 10:17 0.5 MG Methylprednisolone Sodium Succinate 40 mg BID IV 04/17/25 10:00 04/18/25 10:30 40 MG Azithromycin 250 ml @ 125 mls/hr DAILY IV 04/17/25 10:00 04/18/25 10:40 125 MLS/HR Levalbuterol HCl 1.25 mg Q4HWA [facility] 04/17/25 06:00 04/18/25 10:17 1.25 MG Examination General Appearance: Alert, Oriented X3, Cooperative, No acute distress HEENT: Atraumatic, PERRLA, EOMI, Mucous membrane moist/pink Respiratory: Wheezing Cardiovascular: Regular rate, Normal S1, Normal S2, No murmurs, no chest wall tenderness Abdominal: Normal bowel sounds, Soft, No tenderness, No hepatospenomegaly, No masses Extremities: No clubbing, No cyanosis, No edema, Normal pulses, No tenderness/swelling Skin: No rashes, No breakdown, No significant lesion Neuro: Normal gait, Normal speech, Strength at 5/5 X4 ext, Normal tone, Sensation intact, Cranial nerves 3-12 NL, Reflexes 2+ Psych/Mental Status: Mental status NL, Mood NL laboratory and microbiology Laboratory Tests 04/18/25 04:40 Test 04/18/25 04:40 Range/Units Serum Glucose 105 74-106 mg/dL Microbiology Date/Time Source Procedure Growth Status 04/16/25 23:54 Blood Blood Culture - Preliminary NO GROWTH AFTER 24 HOURS OF INCUBATION. Resulted Problem List/Assessment/Plan Problem List/Assessment/Plan Assessment and plan Acute asthma exacerbation Acute hypoxic respiratory failure Pneumonia likely due to gram +/- bacterial or viral Sepsis likely due to above Tylenol 650 mg p.o. q6h Azithromycin 500 mg / 250 mL IV Budesonide 0.5 mg neb once Levalbuterol 1.25 MG q4h Ipratropium 0.5 MG q4h Methylprednisone 40 MG IV bid IV NS 100 MLS/HR lactic acid urinalysis TSH Mg hepatic panel Blood culture Sputum culture Pulmonology consult History of gallstones No acute exacerbation Follow up with PCP on discharge DIET: Regular diet DVT PROPHYLAXIS: Ambulatory GI PROPHYLAXIS:: Not needed BOWEL REGIMEN: Not needed CODE STATUS: Goal of care discussed for more than 19 minutes, full code DISPOSITION: Med/surge RECONCILED HOME MEDS: None PCP: Dr. Shay Lange Patient's status and plan discussed with the patient. Case discussed with Dr. Patino Plan discussed with: Patient Dietary Evaluation Review Comments: Monitor PO intake, lab values, weight trend, and I/O Expected Outcomes/Goals: Intake to meet >75% estimated needs FU 5-7 days Date of Service: May 19, 2025 Billing Provider: SOLOMON PATINO MD Common Visit Codes: [id number] INP/OBS CARE(HIGH) JH VALENTINE RESIDENT Apr 18, 2025 14:20 SOLOMON PATINO MD Apr 23, 2025 18:50
[2025-04-18 20:53] LABS: Amphetamine Screen, Urine Neg (NEGATIVE); Barbiturate Scree,Urine Neg (NEGATIVE); Benzodiazephine Screen, Urine Neg (NEGATIVE); Cannabinoid Screen, Urine Pos (NEGATIVE); Cocaine Screen, Urine Neg (NEGATIVE); Opiate Scree,Urine Neg (NEGATIVE); Phencyclidine Screen, Urine Neg (NEGATIVE)
[2025-04-18 21:15] LABS: Urine Protein, UAD TRACE (Negative)
--- NOTE | 2025-04-18 23:17 | DVHINCON2 ---
Date of service: Apr 17, [address] Goins Reason for Consultation Acute hypoxic respiratory failure, asthma exacerbation History of Present Illness A 24-year-old woman with past medical history of asthma who presented to the ED on 04/16/25 with complaint of shortness of breath, cough and upper back pain of sudden onset at home. This is her 4th episode of asthma exacerbation. She used her inhaler three times and a nebulizer at home without improvement. She reports having flu-like symptoms and a cold two days prior to presentation, along with watery diarrhea 3 times per day for the past 3 days, which may have triggered the asthma exacerbation. Patient denied chest pain, congestion, fever, chills, or other acute complaints. Upon arrival to ED, patient had a temperature of 99.7 F, pulse rate of 132, respiratory rate 24, blood pressure 125/94, and pulse ox of 90% on room air. She was started on 2 LPM oxygen via nasal cannula, given breathing treatment and IV fluids. Patient was admitted for further care. Pulmonary consultation is requested for evaluation and management of acute hypoxic respiratory failure and asthma exacerbation. Review of Systems: 14-point review of systems negative unless otherwise noted above. Past Medical History: Asthma, gallstones Past Surgical History: None Medications: Reviewed. Allergies: No known drug allergies. Family History: Pneumonia. Social History: Nonsmoker. Smoking history of 6 years, <1 pack. Alcohol: Denies Illicit drug use: Marijuana, 6 years. Family History: FH: pneumonia G8 MOTHER Allergies: Coded Allergies: NO KNOWN ALLERGIES (Unverified , 04/13/24) Home Meds Active Scripts Prednisone (Prednisone) 20 Mg Tab, 20 MG PO DAILY for 4 Days, #4 MG Prov:RACHELE DE LUNA MD 04/16/25 Albuterol Sulfate (Albuterol Sulfate) 0.083 % Neb, 1 VIAL NEB Q4HPRN PRN for 5 Days, #5 VIAL Prov:RACHELE DE LUNA MD 04/16/25 Prednisone (Prednisone) 20 Mg Tab, 20 MG PO DAILY for 5 Days, #5 TAB Prov:JUANA NORTON DO 04/21/24 Albuterol Sulfate (Albuterol Sulfate Hfa) 108 Mcg/Act Aer, 108 MCG IN Q4HPRN PRN for 20 Days, #1 AER Prov:JUANA NORTON DO 04/21/24 Vital Signs Vital Signs Date Time Temp Pulse Resp B/P (MAP) Pulse Ox O2 Delivery O2 Flow Rate FiO2 04/18/25 22:54 99 18 100 04/18/25 22:44 Nasal Cannula* 1 24 04/18/25 21:00 98.6 136/94 (108) 98.6 Physical Exam Gen.: Patient lying in bed in no apparent distress. On supplemental oxygen. Head: Normocephalic, atraumatic. Eyes: EOMI/PERRLA. Ears: Normal hearing. Normal anatomy. Neck/trachea: Trachea midline, supple. Nose: Normal external anatomy. Mouth: Moist mucous membranes. Chest: Decreased air entry bilaterally. No wheezing or rhonchi. Cardiovascular: Positive S1, positive S2. Regular rate and rhythm. Abdomen: Positive bowel sounds in all 4 quadrants. Soft, non-tender, non- distended. : Deferred. Rectal: Deferred. Skin: Warm, dry. Intact. Extremities: 2+ radial pulses bilaterally. No lower extremity edema. Neuro: Awake, alert, oriented x3. No gross motor or sensory deficits. Cranial nerves II through XII intact. Gait not assessed. Labs/Diagnostic Data Labs Test 04/18/25 19:30 04/18/25 04:40 04/17/25 10:18 04/17/25 04:15 Range/Units Urine Color Light-yellow Yellow Urine Clarity Clear Clear Urine pH 6.5 5.0-9.0 Urine Specific [place] 1.025 1.001-1.035 Urine Protein Trace H Negative Urine Ketones Trace Negative Urine Blood Negative Negative /uL Urine Nitrite Negative Negative Urine Bilirubin Negative Negative Urine Urobilinogen Normal Negative mg/dL Urine Leukocyte Esterase 1+ Negative /uL Urine RBC 2 0 - 4 /hpf Urine Microscopic WBC 8 H 0-5 /HPF Urine Squamous Epithelial Cells Few <5 /hpf Urine Bacteria Few H None Seen /hpf Urine Mucus Few None Seen Urine Glucose Normal Normal mg/dL Urine Opiates Screen Neg NEGATIVE Urine Fentanyl Screen Neg NEGATIVE Urine Barbiturates Screen Neg NEGATIVE Urine Phencyclidine Screen Neg NEGATIVE Urine Amphetamines Screen Neg NEGATIVE Urine Benzodiazepines Screen Neg NEGATIVE Urine Cocaine Screen Neg NEGATIVE Urine Cannabinoids Screen Pos NEGATIVE White Blood Count 14.2 #H 4.4-10.8 10^3/uL Red Blood Count 4.65 4.0-5.20 10^6/uL Hemoglobin 14.1 12.2-16.2 g/dL Hematocrit 43.1 36.0-46.0 % Mean Corpuscular Volume 92.6 80.0-100.0 fL Mean Corpuscular Hemoglobin 30.3 28.0-32.0 pg Mean Corpuscular Hemoglobin Concent 32.7 32.0-36.0 g/dL Red Cell Distribution Width 15.9 H 11.8-14.3 % Platelet Count 203 140-450 10^3/uL Mean Platelet Volume 10.8 6.9-10.8 fL Neutrophils (%) (Auto) 91.5 H 37.0-80.0 % Lymphocytes (%) (Auto) 6.6 L 10.0-50.0 % Monocytes (%) (Auto) 1.7 0.0-12.0 % Eosinophils (%) (Auto) 0.0 0.0-7.0 % Basophils (%) (Auto) 0.2 0.0-2.0 % Neutrophils # (Auto) 13.0 H 1.6-8.6 10 ^3/uL Lymphocytes # (Auto) 0.9 0.4-5.4 10 ^3/uL Monocytes # (Auto) 0.2 0-1.3 10 ^3/uL Eosinophils # (Auto) 0 0-0.8 10 ^3/uL Basophils # (Auto) 0 0-0.2 10 ^3/uL Nucleated Red Blood Cells 0.0 % Sodium Level 142 136-145 mmol/L Potassium Level 3.9 3.5-5.1 mmol/L Chloride Level 109 H 98-107 mmol/L Carbon Dioxide Level 18 L 20-31 mmol/L Anion Gap 15 5-15 Blood Urea Nitrogen 7 L 9-23 mg/dL Creatinine 0.95 0.550-1.02 mg/dL Glomerular Filtration Rate Calc 87 >90 mL/min BUN/Creatinine Ratio 7.4 L 10.0-20.0 Serum Glucose 105 74-106 mg/dL Calcium Level 9.4 8.7-10.4 mg/dL Total Bilirubin 0.3 0.2-1.0 mg/dL Aspartate Amino Transferase (AST) 32 13-40 U/L Alanine Aminotransferase (ALT) 14 7-40 U/L Alkaline Phosphatase 79 46-116 U/L Total Protein 8.0 5.7-8.2 g/dL Albumin 4.8 3.2-4.8 g/dL D-Dimer, Quantitative 0.68 H 0.0-0.49 mg/L FEU Beta HCG, Quantitative 0.2 L 1.5-4.2 mIU/mL Test 04/16/25 23:43 04/16/25 20:19 Range/Units Lactic Acid Level 1.7 0.4-2.0 mmol/L Magnesium Level 2.0 1.6-2.6 mg/dL Direct Bilirubin 0.2 <0.3 mg/dL Thyroid Stimulating Hormone (TSH) 1.17 0.55-4.78 uIU/mL Influenza Type A Antigen Negative Negative Influenza Type B Antigen Negative Negative SARS-CoV-2 Antigen (Rapid) Negative NEGATIVE Microbiology Date/Time Source Procedure Growth Status 04/16/25 23:54 Blood Blood Culture - Preliminary NO GROWTH AFTER 24 HOURS OF INCUBATION. Resulted Assessment Impression: Acute hypoxic respiratory failure 2/2 asthma exacerbation Asthma exacerbation Sepsis Pneumonia, likely gram-negative. Hx of nicotine dependence Marijuana use Obesity, BMI 35.9 Plan: Supplemental oxygen Titrate to keep O2 sats above 92%. Chest x-ray reviewed, notable for pulmonary vascular congestion. Bronchodilators. Antibiotics Follow up cultures IV steroids Recommend diet and lifestyle modifications for weight reduction Obesity complicates all care Monitor renal function. Monitor electrolytes. Supplement as necessary. Monitor ins and outs. DVT prophylaxis. Prognosis: Poor given patient's multiple co-morbidities. Rest of plan per hospitalist and other consultants. Thank you, Dr. Goins, for allowing me to participate in this patient's care. Further recommendations will depend on the patient's clinical course. Please do not hesitate to contact me if you have any questions or concerns. This medical document was created using an electronic medical record system with [employer] dictation system. Although these documentations are being carefully reviewed, there may still be some phonetic and typographical changes. The errors are purely typographical, due to imperfection on the software program, and do not reflect any compromise in the patient's medical care. Plan discussed with: Patient, Other (RN/) Visit Coding Pulmonary Billing Provider: NATY PIÑA MD Date of Service if different f: Apr 17, 2025 Common Visit Codes: [id number] INP/OBS CARE (HIGH) NATY PIÑA MD Apr 18, 2025 23:17
--- NOTE | 2025-04-18 23:18 | DVHPN2 ---
Subjective DOS: 04/18/2025 Patient seen and examined at bedside. Remains on supplemental oxygen Overnight events reviewed. Changes from previous H/P or p: No Changes Objective Vitals Vital Signs Date Time Temp Pulse Resp B/P (MAP) Pulse Ox O2 Delivery O2 Flow Rate FiO2 04/18/25 22:54 99 18 100 04/18/25 22:44 Nasal Cannula* 1 24 04/18/25 21:00 98.6 136/94 (108) 98.6 Intake/Output Intake and Output 04/18/25 07:00 Intake Total 1450 ml Balance 1450 ml Intake Oral 1100 ml IV Total 350 ml # Voids 2 Exam Gen.: Patient lying in bed in no apparent distress. On supplemental oxygen. Head: Normocephalic, atraumatic. Eyes: EOMI/PERRLA. Ears: Normal hearing. Normal anatomy. Neck/trachea: Trachea midline, supple. Nose: Normal external anatomy. Mouth: Moist mucous membranes. Chest: Decreased air entry bilaterally. No wheezing or rhonchi. Cardiovascular: Positive S1, positive S2. Regular rate and rhythm. Abdomen: Positive bowel sounds in all 4 quadrants. Soft, non-tender, non- distended. : Deferred. Rectal: Deferred. Skin: Warm, dry. Intact. Extremities: 2+ radial pulses bilaterally. No lower extremity edema. Neuro: Awake, alert, oriented x3. No gross motor or sensory deficits. Cranial nerves II through XII intact. Gait not assessed. Medications Current Medications Medications Dose Ordered Sig/Neno Route Start Time Stop Time Status Last Admin Dose Admin Acetaminophen 650 mg Q6HP PRN PO 04/16/25 23:15 Ipratropium [place] 0.5 mg Q4HWA [facility] 04/17/25 06:00 04/18/25 22:44 Methylprednisolone Sodium Succinate 40 mg BID IV 04/17/25 10:00 04/18/25 21:56 Azithromycin 250 ml @ 125 mls/hr DAILY IV 04/17/25 10:00 04/18/25 10:40 Levalbuterol HCl 1.25 mg Q4HWA [facility] 04/17/25 06:00 04/18/25 22:44 Laboratory Results Laboratory Tests 04/18/25 04:40 Chemistry Test 04/18/25 04:40 Albumin 4.8 g/dL (3.2-4.8) Calcium Level 9.4 mg/dL (8.7-10.4) Total Protein 8.0 g/dL (5.7-8.2) LFT Test 04/18/25 04:40 Alanine Aminotransferase (ALT) 14 U/L (7-40) Alkaline Phosphatase 79 U/L (46-116) Aspartate Amino Transferase (AST) 32 U/L (13-40) Total Bilirubin 0.3 mg/dL (0.2-1.0) Urinalysis Test 04/18/25 19:30 Urine Color Light-yellow (Yellow) Urine Clarity Clear (Clear) Urine pH 6.5 (5.0-9.0) Urine Specific [place] 1.025 (1.001-1.035) Urine Protein Trace (Negative) H Urine Ketones Trace (Negative) Urine Blood Negative /uL (Negative) Urine Nitrite Negative (Negative) Urine Bilirubin Negative (Negative) Urine Urobilinogen Normal mg/dL (Negative) Urine Leukocyte Esterase 1+ /uL (Negative) Urine RBC 2 /hpf (0 - 4) Urine Microscopic WBC 8 /HPF (0-5) H Urine Squamous Epithelial Cells Few /hpf (<5) Urine Bacteria Few /hpf (None Seen) H Urine Mucus Few (None Seen) Urine Glucose Normal mg/dL (Normal) Microbiology Microbiology Date/Time Source Procedure Growth Status 04/16/25 23:54 Blood Blood Culture - Preliminary NO GROWTH AFTER 24 HOURS OF INCUBATION. Resulted Assessment/Plan Assessment/Plan Impression: Acute hypoxic respiratory failure 2/2 asthma exacerbation Asthma exacerbation Sepsis Pneumonia, likely gram-negative. Hx of nicotine dependence Marijuana use Obesity, BMI 35.9 Events: Remains on supplemental oxygen, 1 LPM NC Taper O2 as tolerated No distress. No acute overnight events. Continue bronchodilators Continue IV steroids Continue antibiotics Blood cultures show no growth after 48 hours Incentive spirometry Labs and imaging reviewed. Rest of plan as noted below. Plan: Supplemental oxygen Titrate to keep O2 sats above 92%. Chest x-ray reviewed, notable for pulmonary vascular congestion. Bronchodilators. Antibiotics Follow up cultures IV steroids Recommend diet and lifestyle modifications for weight reduction Obesity complicates all care Monitor renal function. Monitor electrolytes. Supplement as necessary. Monitor ins and outs. DVT prophylaxis. Prognosis: Poor given patient's multiple co-morbidities. Rest of plan per hospitalist and other consultants. Thank you, Dr. Goins, for allowing me to participate in this patient's care. Further recommendations will depend on the patient's clinical course. Please do not hesitate to contact me if you have any questions or concerns. This medical document was created using an electronic medical record system with [employer] dictation system. Although these documentations are being carefully reviewed, there may still be some phonetic and typographical changes. The errors are purely typographical, due to imperfection on the software program, and do not reflect any compromise in the patient's medical care. Plan discussed with: Patient, Other (RN) Visit Coding Pulmonary Billing Provider: NATY PIÑA MD Date of Service if different f: Apr 18, 2025 Common Visit Codes: [id number] INP/OBS CARE(HIGH) NATY PIÑA MD Apr 18, 2025 23:17
[2025-04-19] VITALS (18 sets, daily range): BP systolic 100–127; BP diastolic 53–89; PULSE 67–113; RESP 18–20; TEMP 98.1–98.8; O2SAT 92–100
[2025-04-19 06:32] LABS: Hematocrit 41.4 % (36.0-46.0); Hemoglobin 14.2 g/dL (12.2-16.2); Mean Corpuscular Hemoglobin 31.2 pg (28.0-32.0); Mean Corpuscular Volume 90.7 fL (80.0-100.0); Nucleated Red Blood Cells % 0.0 %
[2025-04-19 06:47] LABS: Alanine Aminotransferase 15 U/L (7-40); Albumin 4.7 g/dL (3.2-4.8); Alkaline Phosphatase 79 U/L (46-116); Anion Gap 12 (5-15); BUN/Creatinine Ratio 10.5 (10.0-20.0); Blood Urea Nitrogen 10 mg/dL (9-23); Calcium 9.2 mg/dL (8.7-10.4); Carbon Dioxide 23 mmol/L (20-31); Potassium 4.1 mmol/L (3.5-5.1); Sodium 142 mmol/L (136-145); Total Protein 7.8 g/dL (5.7-8.2)
[2025-04-19 06:48] LABS: Bilirubin, Total 0.3 mg/dL (0.2-1.0)
[2025-04-19 06:52] LABS: Chloride 107 mmol/L (98-107); Glucose 108 mg/dL (74-106)
[2025-04-19] MEDS: MAGNESIUM SULFATE 1GM/100ML 100 ML IV SCH (13:52)
--- NOTE | 2025-04-19 14:03 | DVHPNRES ---
Progress Note Date Seen: Apr 19, 2025 Resident Creating Document: [facility] VALENTINE RESIDENT Medical Necessity Reason Pt with a Central, PICC or Fol: No Subjective Review of Systems Patient seen at bedside. Still complains of shortness of breath. Wheezing present. Mikaela Vila 24-year-old emale with past medical history of asthma and gallstones presented with complaints of shortness of breath, dizziness, blurriness, cough with yellowish sputum, upper back pain since 2 days. She states that she was in the shower med the symptoms started. She also complains of a cold and 2-3 diarrhea episodes per day since the symptoms started. Patient reports that this is her 4th asthma exacerbation this past year. She denies chest pain, congestion, fever, chills, sick contacts, recent travel, stressors, or strenuous activity. No other pertinent medical or surgical history is reported. PMHx: asthma and gallstones PSHx: Denies surgical history Family history: no relevant family history Social history: denies smoking and alcohol use, admits to marijuana use daily Home medication: albuterol inhaler as needed Allergic history: no known allergies PCP: Dr. Shay Lange General: patient denies fever, fatigue, weaknes, sweating, any recent changes in appetite and weight HEENT: No headaches, visiual changes, hearing loss, tinnitus, nasal congestion and discharge, and sore throat. Cardiovascular: Denies chest pain, palpitations, or claudication. complaints of shortness of breath Respiratory: complaints of cough Gastrointestinal: Denies nausea, vomiting, dysphagia, odynophagia, heartburn, abdominal pain, flatulence, bloating, constipation, change in stool, or blood in stool. complains of diarrhea Genitourinary: No dysuria, hematuria, discharge, frequency, urgency, nocturia, incontinence, and urinary retention. Endocrine: No heat or cold intolerance, polydipsia, polyuria, and polyphagia. Neurological: No dizziness, extremity weakness and numbness, tremors, gait disturbance, seizures, and memory impairment. Complains of upper back pain Psychiatric: Denies depression, anxiety, or insomnia. Musculoskeletal: Denies neck pain, stiffness and swelling, muscle weakness, joint pain, stiffness, swelling, or limited range of motion. Skin: No rashes, itching, skin lesion, changes in hair, nail, skin texture and breast. Hematologic/Lymphatic: Denies easy bruising, bleeding tendencies, or lymph node enlargement. Objective vital signs Vital Sign Date Time Temp Pulse Resp B/P (MAP) Pulse Ox O2 Delivery O2 Flow Rate FiO2 04/19/25 10:16 96 Nasal Cannula 1.0 04/19/25 10:16 24 04/19/25 10:16 71 18 04/19/25 04:32 98.4 100/53 (69) 98.4 Total Intake and Output 04/18/25 04/18/25 04/19/25 15:00 23:00 07:00 Intake Total 1540 ml 600 ml Balance 1540 ml 600 ml medications Current Medications Medications Dose Ordered Sig/Neno Route Start Time Stop Time Status Last Admin Dose Admin Acetaminophen 650 mg Q6HP PRN PO 04/16/25 23:15 Ipratropium [place] 0.5 mg Q4HWA [facility] 04/17/25 06:00 04/19/25 10:16 0.5 MG Methylprednisolone Sodium Succinate 40 mg BID IV 04/17/25 10:00 04/19/25 11:16 40 MG Azithromycin 250 ml @ 125 mls/hr DAILY IV 04/17/25 10:00 04/19/25 11:16 125 MLS/HR Levalbuterol HCl 1.25 mg Q4HWA [facility] 04/17/25 06:00 04/19/25 10:16 1.25 MG Ceftriaxone Sodium 50 ml @ 100 mls/hr DAILY@09 IV 04/19/25 09:30 04/19/25 13:52 100 MLS/HR Examination General Appearance: Alert, Oriented X3, Cooperative, No acute distress HEENT: Atraumatic, PERRLA, EOMI, Mucous membrane moist/pink Respiratory: Wheezing Cardiovascular: Regular rate, Normal S1, Normal S2, No murmurs, no chest wall tenderness Abdominal: Normal bowel sounds, Soft, No tenderness, No hepatospenomegaly, No masses Extremities: No clubbing, No cyanosis, No edema, Normal pulses, No tenderness/swelling Skin: No rashes, No breakdown, No significant lesion Neuro: Normal gait, Normal speech, Strength at 5/5 X4 ext, Normal tone, Sensation intact, Cranial nerves 3-12 NL, Reflexes 2+ Psych/Mental Status: Mental status NL, Mood NL laboratory and microbiology Laboratory Tests 04/19/25 04:44 Test 04/19/25 04:44 Range/Units Serum Glucose 108 H 74-106 mg/dL Microbiology Date/Time Source Procedure Growth Status 04/16/25 23:54 Blood Blood Culture - Preliminary NO GROWTH AFTER 48 HOURS OF INCUBATION. Resulted Problem List/Assessment/Plan Problem List/Assessment/Plan Assessment and plan Acute asthma exacerbation Acute hypoxic respiratory failure Pneumonia likely due to gram +/- bacterial or viral Sepsis likely due to above Tylenol 650 mg p.o. q6h Azithromycin 500 mg / 250 mL IV Budesonide 0.5 mg neb once Levalbuterol 1.25 MG q4h Ipratropium 0.5 MG q4h Methylprednisone 40 MG IV bid IV NS 100 MLS/HR lactic acid urinalysis TSH Mg hepatic panel Blood culture Sputum culture Pulmonology consult History of gallstones No acute exacerbation Follow up with PCP on discharge DIET: Regular diet DVT PROPHYLAXIS: Ambulatory GI PROPHYLAXIS:: Not needed BOWEL REGIMEN: Not needed CODE STATUS: Goal of care discussed for more than 19 minutes, full code DISPOSITION: Med/surge RECONCILED HOME MEDS: None PCP: Dr. Shay Lange Patient's status and plan discussed with the patient. Case discussed with Dr. Patino Plan discussed with: Patient Dietary Evaluation Review Comments: Monitor PO intake, lab values, weight trend, and I/O Expected Outcomes/Goals: Intake to meet >75% estimated needs FU 5-7 days Date of Service: Apr 19, 2025 Billing Provider: SOLOMON PATINO MD Common Visit Codes: [id number] INP/OBS CARE(HIGH) [facility] VALENT[facility] RESIDENT Apr 19, 2025 14:03 SOLOMON PATINO MD Apr 23, 2025 18:50
[2025-04-19] MEDS: MAGNESIUM SULFATE 1GM/100ML 200 ML IV ONE (16:00)
--- NOTE | 2025-04-19 23:13 | DVHPN2 ---
Subjective DOS: 04/19/2025 Patient seen and examined at bedside. Remains on supplemental oxygen Overnight events reviewed. Changes from previous H/P or p: No Changes Objective Vitals Vital Signs Date Time Temp Pulse Resp B/P (MAP) Pulse Ox O2 Delivery O2 Flow Rate FiO2 04/19/25 22:26 67 18 100 04/19/25 22:20 Nasal Cannula* 1 24 04/19/25 21:16 98.8 127/89 (102) 98.8 Intake/Output Intake and Output 04/19/25 07:00 Intake Total 2390 ml Balance 2390 ml Intake Oral 2140 ml IV Total 250 ml # Voids 6 Exam Gen.: Patient lying in bed in no apparent distress. On supplemental oxygen. Head: Normocephalic, atraumatic. Eyes: EOMI/PERRLA. Ears: Normal hearing. Normal anatomy. Neck/trachea: Trachea midline, supple. Nose: Normal external anatomy. Mouth: Moist mucous membranes. Chest: Decreased air entry bilaterally. Wheezing. No rhonchi. Cardiovascular: Positive S1, positive S2. Regular rate and rhythm. Abdomen: Positive bowel sounds in all 4 quadrants. Soft, non-tender, non- distended. : Deferred. Rectal: Deferred. Skin: Warm, dry. Intact. Extremities: 2+ radial pulses bilaterally. No lower extremity edema. Neuro: Awake, alert, oriented x3. No gross motor or sensory deficits. Cranial nerves II through XII intact. Gait not assessed. Medications Current Medications Medications Dose Ordered Sig/Neno Route Start Time Stop Time Status Last Admin Dose Admin Acetaminophen 650 mg Q6HP PRN PO 04/16/25 23:15 Ipratropium [place] 0.5 mg Q4HWA [facility] 04/17/25 06:00 04/19/25 22:20 0.5 MG Methylprednisolone Sodium Succinate 40 mg BID IV 04/17/25 10:00 04/19/25 21:09 40 MG Azithromycin 250 ml @ 125 mls/hr DAILY IV 04/17/25 10:00 04/19/25 11:16 125 MLS/HR Levalbuterol HCl 1.25 mg Q4HWA [facility] 04/17/25 06:00 04/19/25 22:20 1.25 MG Ceftriaxone Sodium 50 ml @ 100 mls/hr DAILY@09 IV 04/19/25 09:30 04/19/25 13:52 100 MLS/HR Laboratory Results Laboratory Tests 04/19/25 04:44 Chemistry Test 04/19/25 04:44 Albumin 4.7 g/dL (3.2-4.8) Calcium Level 9.2 mg/dL (8.7-10.4) Total Protein 7.8 g/dL (5.7-8.2) LFT Test 04/19/25 04:44 Alanine Aminotransferase (ALT) 15 U/L (7-40) Alkaline Phosphatase 79 U/L (46-116) Aspartate Amino Transferase (AST) 23 U/L (13-40) Total Bilirubin 0.3 mg/dL (0.2-1.0) Urinalysis Test 04/18/25 19:30 Urine Color Light-yellow (Yellow) Urine Clarity Clear (Clear) Urine pH 6.5 (5.0-9.0) Urine Specific [place] 1.025 (1.001-1.035) Urine Protein Trace (Negative) H Urine Ketones Trace (Negative) Urine Blood Negative /uL (Negative) Urine Nitrite Negative (Negative) Urine Bilirubin Negative (Negative) Urine Urobilinogen Normal mg/dL (Negative) Urine Leukocyte Esterase 1+ /uL (Negative) Urine RBC 2 /hpf (0 - 4) Urine Microscopic WBC 8 /HPF (0-5) H Urine Squamous Epithelial Cells Few /hpf (<5) Urine Bacteria Few /hpf (None Seen) H Urine Mucus Few (None Seen) Urine Glucose Normal mg/dL (Normal) Microbiology Microbiology Date/Time Source Procedure Growth Status 04/16/25 23:54 Blood Blood Culture - Preliminary NO GROWTH AFTER 48 HOURS OF INCUBATION. Resulted Assessment/Plan Assessment/Plan Impression: Acute hypoxic respiratory failure 2/2 asthma exacerbation Asthma exacerbation Sepsis Pneumonia, likely gram-negative. Hx of nicotine dependence Marijuana use Obesity, BMI 35.9 Events: Remains on supplemental oxygen, 2 LPM --> 0.5 LPM NC Improving oxygen requirements Continue to taper O2 as tolerated No distress. No acute overnight events. Patient is feeling better Wheezing is improving Continue bronchodilators Continue IV steroids Continue antibiotics Blood cultures show no growth after 48 hours Incentive spirometry Pt received second bag of magnesium Monitor renal function Monitor electrolytes, supplement as necessary Labs and imaging reviewed. Rest of plan as noted below. Plan: Supplemental oxygen Titrate to keep O2 sats above 92%. Chest x-ray reviewed, notable for pulmonary vascular congestion. Bronchodilators. Antibiotics Follow up cultures IV steroids Recommend diet and lifestyle modifications for weight reduction Obesity complicates all care Monitor renal function. Monitor electrolytes. Supplement as necessary. Monitor ins and outs. DVT prophylaxis. Prognosis: Poor given patient's multiple co-morbidities. Rest of plan per hospitalist and other consultants. Thank you, Dr. Goins, for allowing me to participate in this patient's care. Further recommendations will depend on the patient's clinical course. Please do not hesitate to contact me if you have any questions or concerns. This medical document was created using an electronic medical record system with [employer] dictation system. Although these documentations are being carefully reviewed, there may still be some phonetic and typographical changes. The errors are purely typographical, due to imperfection on the software program, and do not reflect any compromise in the patient's medical care. Plan discussed with: Patient, Other (YOSHI Bhardwaj) Visit Coding Pulmonary Billing Provider: NATY PIÑA MD Date of Service if different f: Apr 19, 2025 Common Visit Codes: [id number] INP/OBS CARE(HIGH) NATY PIÑA MD Apr 19, 2025 23:12
[2025-04-20] VITALS (18 sets, daily range): BP systolic 113–138; BP diastolic 58–93; PULSE 60–112; RESP 16–20; TEMP 98–98.4; O2SAT 91–100
[2025-04-20] MEDS: methylPREDNISolone SOD SUCC 125 MG/2 ML VL IV SCH (19:53)
[2025-04-21] VITALS (10 sets, daily range): BP systolic 106–146; BP diastolic 66–89; PULSE 53–112; RESP 15–18; TEMP 37.1; O2SAT 94–100
--- NOTE | 2025-04-21 11:18 | DVHPNRES ---
Progress Note Date Seen: Apr 20, 2025 Resident Creating Document: JH VALENTINE RESIDENT Medical Necessity Reason Pt with a Central, PICC or Fol: No Subjective Review of Systems Patient seen at bedside. 0.5 L oxygen, continue weaning. Mild wheeze present. Mikaela Vila 24-year-old emale with past medical history of asthma and gallstones presented with complaints of shortness of breath, dizziness, blurriness, cough with yellowish sputum, upper back pain since 2 days. She states that she was in the shower med the symptoms started. She also complains of a cold and 2-3 diarrhea episodes per day since the symptoms started. Patient reports that this is her 4th asthma exacerbation this past year. She denies chest pain, congestion, fever, chills, sick contacts, recent travel, stressors, or strenuous activity. No other pertinent medical or surgical history is reported. PMHx: asthma and gallstones PSHx: Denies surgical history Family history: no relevant family history Social history: denies smoking and alcohol use, admits to marijuana use daily Home medication: albuterol inhaler as needed Allergic history: no known allergies PCP: Dr. Shay Lange General: patient denies fever, fatigue, weaknes, sweating, any recent changes in appetite and weight HEENT: No headaches, visiual changes, hearing loss, tinnitus, nasal congestion and discharge, and sore throat. Cardiovascular: Denies chest pain, palpitations, or claudication. complaints of shortness of breath Respiratory: complaints of cough Gastrointestinal: Denies nausea, vomiting, dysphagia, odynophagia, heartburn, abdominal pain, flatulence, bloating, constipation, change in stool, or blood in stool. complains of diarrhea Genitourinary: No dysuria, hematuria, discharge, frequency, urgency, nocturia, incontinence, and urinary retention. Endocrine: No heat or cold intolerance, polydipsia, polyuria, and polyphagia. Neurological: No dizziness, extremity weakness and numbness, tremors, gait disturbance, seizures, and memory impairment. Complains of upper back pain Psychiatric: Denies depression, anxiety, or insomnia. Musculoskeletal: Denies neck pain, stiffness and swelling, muscle weakness, joint pain, stiffness, swelling, or limited range of motion. Skin: No rashes, itching, skin lesion, changes in hair, nail, skin texture and breast. Hematologic/Lymphatic: Denies easy bruising, bleeding tendencies, or lymph node enlargement. Objective vital signs Vital Sign Date Time Temp Pulse Resp B/P (MAP) Pulse Ox O2 Delivery O2 Flow Rate FiO2 04/20/25 14:34 75 16 96 04/20/25 13:00 98.0 138/93 (108) 98.0 04/20/25 10:39 Room Air 04/20/25 10:39 0 21 Total Intake and Output 04/19/25 04/19/25 04/20/25 15:00 23:00 07:00 Intake Total 250 ml 830 ml 800 ml Output Total 850 ml Balance 250 ml -20 ml 800 ml medications Current Medications Medications Dose Ordered Sig/Neno Route Start Time Stop Time Status Last Admin Dose Admin Acetaminophen 650 mg Q6HP PRN PO 04/16/25 23:15 Ipratropium [place] 0.5 mg Q4HWA NEB 04/17/25 06:00 04/20/25 14:34 0.5 MG Azithromycin 250 ml @ 125 mls/hr DAILY IV 04/17/25 10:00 04/20/25 10:58 125 MLS/HR Levalbuterol HCl 1.25 mg Q4HWA NEB 04/17/25 06:00 04/20/25 14:34 1.25 MG Ceftriaxone Sodium 50 ml @ 100 mls/hr DAILY@09 IV 04/19/25 09:30 04/20/25 09:57 100 MLS/HR Methylprednisolone Sodium Succinate 80 mg BID IV 04/20/25 20:00 Examination General Appearance: Alert, Oriented X3, Cooperative, No acute distress HEENT: Atraumatic, PERRLA, EOMI, Mucous membrane moist/pink Respiratory: Wheezing Cardiovascular: Regular rate, Normal S1, Normal S2, No murmurs, no chest wall tenderness Abdominal: Normal bowel sounds, Soft, No tenderness, No hepatospenomegaly, No masses Extremities: No clubbing, No cyanosis, No edema, Normal pulses, No tenderness/swelling Skin: No rashes, No breakdown, No significant lesion Neuro: Normal gait, Normal speech, Strength at 5/5 X4 ext, Normal tone, Sensation intact, Cranial nerves 3-12 NL, Reflexes 2+ Psych/Mental Status: Mental status NL, Mood NL laboratory and microbiology Laboratory Tests 04/19/25 04:44 Test 04/19/25 04:44 Range/Units Serum Glucose 108 H 74-106 mg/dL Microbiology Date/Time Source Procedure Growth Status 04/16/25 23:54 Blood Blood Culture - Preliminary NO GROWTH AFTER 72 HOURS OF INCUBATION. Resulted Problem List/Assessment/Plan Problem List/Assessment/Plan Assessment and plan Acute asthma exacerbation Acute hypoxic respiratory failure Pneumonia likely due to gram +/- bacterial or viral Sepsis likely due to above Tylenol 650 mg p.o. q6h Azithromycin 500 mg / 250 mL IV Budesonide 0.5 mg neb once Levalbuterol 1.25 MG q4h Ipratropium 0.5 MG q4h Methylprednisone 40 MG IV bid IV NS 100 MLS/HR lactic acid urinalysis TSH Mg hepatic panel Blood culture Sputum culture Pulmonology consult History of gallstones No acute exacerbation Follow up with PCP on discharge DIET: Regular diet DVT PROPHYLAXIS: Ambulatory GI PROPHYLAXIS:: Not needed BOWEL REGIMEN: Not needed CODE STATUS: Goal of care discussed for more than 19 minutes, full code DISPOSITION: Med/surge RECONCILED HOME MEDS: None PCP: Dr. Shay Lange Patient's status and plan discussed with the patient. Case discussed with Dr. Patino Plan discussed with: Patient My Orders My Orders Orders - JH VALENTINE Procedure Category Date Status Time Methylprednisolone PHA 04/20/25 In Process Sod Succ (Solu Medrol 20:00 Dietary Evaluation Review Comments: Monitor PO intake, lab values, weight trend, and I/O Expected Outcomes/Goals: Intake to meet >75% estimated needs FU 5-7 days Date of Service: Apr 20, 2025 Billing Provider: SOLOMON PATINO MD Common Visit Codes: [id number] INP/OBS CARE(HIGH) JH VALENTINE Apr 20, 2025 16:15 SOLOMON PATINO MD Apr 23, 2025 18:51
--- NOTE | 2025-04-21 11:29 | DVHPN2 ---
Subjective DOS: 04/20/2025 Patient seen and examined at bedside. Remains on supplemental oxygen Overnight events reviewed. Changes from previous H/P or p: No Changes Objective Vitals Vital Signs Date Time Temp Pulse Resp B/P (MAP) Pulse Ox O2 Delivery O2 Flow Rate FiO2 04/20/25 22:50 78 16 100 04/20/25 22:40 Room Air* 0 21 04/20/25 21:00 98.1 122/93 (103) 98.1 Intake/Output Intake and Output 04/20/25 07:00 Intake Total 1880 ml Output Total 850 ml Balance 1030 ml Intake Oral 1580 ml IV Total 300 ml Output Urine Total 850 ml # Voids 4 # Bowel Movements 2 Exam Gen.: Patient lying in bed in no apparent distress. On supplemental oxygen. Head: Normocephalic, atraumatic. Eyes: EOMI/PERRLA. Ears: Normal hearing. Normal anatomy. Neck/trachea: Trachea midline, supple. Nose: Normal external anatomy. Mouth: Moist mucous membranes. Chest: Decreased air entry bilaterally. Wheezing. No rhonchi. Cardiovascular: Positive S1, positive S2. Regular rate and rhythm. Abdomen: Positive bowel sounds in all 4 quadrants. Soft, non-tender, non- distended. : Deferred. Rectal: Deferred. Skin: Warm, dry. Intact. Extremities: 2+ radial pulses bilaterally. No lower extremity edema. Neuro: Awake, alert, oriented x3. No gross motor or sensory deficits. Cranial nerves II through XII intact. Gait not assessed. Medications Current Medications Medications Dose Ordered Sig/Neno Route Start Time Stop Time Status Last Admin Dose Admin Acetaminophen 650 mg Q6HP PRN PO 04/16/25 23:15 Ipratropium [place] 0.5 mg Q4HWA [facility] 04/17/25 06:00 04/20/25 22:40 0.5 MG Azithromycin 250 ml @ 125 mls/hr DAILY IV 04/17/25 10:00 04/20/25 10:58 125 MLS/HR Levalbuterol HCl 1.25 mg Q4HWA [facility] 04/17/25 06:00 04/20/25 22:40 1.25 MG Ceftriaxone Sodium 50 ml @ 100 mls/hr DAILY@09 IV 04/19/25 09:30 04/20/25 09:57 100 MLS/HR Methylprednisolone Sodium Succinate 80 mg BID IV 04/20/25 20:00 04/20/25 19:53 80 MG Laboratory Results Laboratory Tests 04/19/25 04:44 Urinalysis Test 04/18/25 19:30 Urine Color Light-yellow (Yellow) Urine Clarity Clear (Clear) Urine pH 6.5 (5.0-9.0) Urine Specific [place] 1.025 (1.001-1.035) Urine Protein Trace (Negative) H Urine Ketones Trace (Negative) Urine Blood Negative /uL (Negative) Urine Nitrite Negative (Negative) Urine Bilirubin Negative (Negative) Urine Urobilinogen Normal mg/dL (Negative) Urine Leukocyte Esterase 1+ /uL (Negative) Urine RBC 2 /hpf (0 - 4) Urine Microscopic WBC 8 /HPF (0-5) H Urine Squamous Epithelial Cells Few /hpf (<5) Urine Bacteria Few /hpf (None Seen) H Urine Mucus Few (None Seen) Urine Glucose Normal mg/dL (Normal) Microbiology Microbiology Date/Time Source Procedure Growth Status 04/16/25 23:54 Blood Blood Culture - Preliminary NO GROWTH AFTER 72 HOURS OF INCUBATION. Resulted Assessment/Plan Assessment/Plan Impression: Acute hypoxic respiratory failure 2/2 asthma exacerbation Asthma exacerbation Sepsis Pneumonia, likely gram-negative. Hx of nicotine dependence Marijuana use Obesity, BMI 35.9 Events: Improved oxygen requirements Taper to room air Supplemental oxygen PRN No distress. No acute overnight events. Patient is feeling better Wheezing is improving Continue bronchodilators Recommend to discontinue on ICS/LABA vs. ICS/JAH - currently only on Ventolin for shortness of breath PRN. Continue IV steroids - complete course. Continue antibiotics Blood cultures show no growth after 72 hours Incentive spirometry Monitor renal function Monitor electrolytes, supplement as necessary Patient is stable for discharge from the pulmonary standpoint once off supplemental oxygen. Disposition per hospitalist. Follow up in 1-2 weeks in [facility]. Labs and imaging reviewed. Rest of plan as noted below. Plan: Supplemental oxygen PRN Titrate to keep O2 sats above 92%. Chest x-ray on 04/16 shows pulmonary vascular congestion. Bronchodilators. Antibiotics Follow up cultures Continue steroids - complete course. Recommend diet and lifestyle modifications for weight reduction Obesity complicates all care Monitor renal function. Monitor electrolytes. Supplement as necessary. Monitor ins and outs. DVT prophylaxis. Prognosis: Poor given patient's multiple co-morbidities. Rest of plan per hospitalist and other consultants. Thank you, Dr. Goins, for allowing me to participate in this patient's care. Further recommendations will depend on the patient's clinical course. Please do not hesitate to contact me if you have any questions or concerns. This medical document was created using an electronic medical record system with [employer] dictation system. Although these documentations are being carefully reviewed, there may still be some phonetic and typographical changes. The errors are purely typographical, due to imperfection on the software program, and do not reflect any compromise in the patient's medical care. Plan discussed with: Patient, Other (RN Li) Visit Coding Pulmonary Billing Provider: NATY PIÑA MD Date of Service if different f: Apr 20, 2025 Common Visit Codes: [id number] INP/OBS CARE(HIGH) NATY PIÑA MD Apr 20, 2025 23:39
--- NOTE | 2025-04-21 16:20 | DVHDSRES ---
Discharge Summary Date of Admission Resident Creating Document: JH VALENTINE RESIDENT Apr 16, 2025 at 23:02 Date of Discharge: Apr 21, 2025 Labs/Diagnostic Data: Laboratory Results Test 04/19/25 04:44 04/18/25 19:30 04/17/25 10:18 04/17/25 04:15 White Blood Count 11.0 10^3/uL (4.4-10.8) Red Blood Count 4.56 10^6/uL (4.0-5.20) Hemoglobin 14.2 g/dL (12.2-16.2) Hematocrit 41.4 % (36.0-46.0) Mean Corpuscular Volume 90.7 fL (80.0-100.0) Mean Corpuscular Hemoglobin 31.2 pg (28.0-32.0) Mean Corpuscular Hemoglobin Concent 34.4 g/dL (32.0-36.0) Red Cell Distribution Width 16.0 % (11.8-14.3) Platelet Count 206 10^3/uL (140-450) Mean Platelet Volume 10.7 fL (6.9-10.8) Neutrophils (%) (Auto) 89.0 % (37.0-80.0) Lymphocytes (%) (Auto) 9.5 % (10.0-50.0) Monocytes (%) (Auto) 1.4 % (0.0-12.0) Eosinophils (%) (Auto) 0.0 % (0.0-7.0) Basophils (%) (Auto) 0.1 % (0.0-2.0) Neutrophils # (Auto) 9.8 10 ^3/uL (1.6-8.6) Lymphocytes # (Auto) 1.0 10 ^3/uL (0.4-5.4) Monocytes # (Auto) 0.2 10 ^3/uL (0-1.3) Eosinophils # (Auto) 0 10 ^3/uL (0-0.8) Basophils # (Auto) 0 10 ^3/uL (0-0.2) Nucleated Red Blood Cells 0.0 % Sodium Level 142 mmol/L (136-145) Potassium Level 4.1 mmol/L (3.5-5.1) Chloride Level 107 mmol/L (98-107) Carbon Dioxide Level 23 mmol/L (20-31) Anion Gap 12 (5-15) Blood Urea Nitrogen 10 mg/dL (9-23) Creatinine 0.95 mg/dL (0.550-1.02) Glomerular Filtration Rate Calc 87 mL/min (>90) BUN/Creatinine Ratio 10.5 (10.0-20.0) Serum Glucose 108 mg/dL (74-106) Calcium Level 9.2 mg/dL (8.7-10.4) Total Bilirubin 0.3 mg/dL (0.2-1.0) Aspartate Amino Transferase (AST) 23 U/L (13-40) Alanine Aminotransferase (ALT) 15 U/L (7-40) Alkaline Phosphatase 79 U/L (46-116) Total Protein 7.8 g/dL (5.7-8.2) Albumin 4.7 g/dL (3.2-4.8) Urine Color Light-yellow (Yellow) Urine Clarity Clear (Clear) Urine pH 6.5 (5.0-9.0) Urine Specific [place] 1.025 (1.001-1.035) Urine Protein Trace (Negative) Urine Ketones Trace (Negative) Urine Blood Negative /uL (Negative) Urine Nitrite Negative (Negative) Urine Bilirubin Negative (Negative) Urine Urobilinogen Normal mg/dL (Negative) Urine Leukocyte Esterase 1+ /uL (Negative) Urine RBC 2 /hpf (0 - 4) Urine Microscopic WBC 8 /HPF (0-5) Urine Squamous Epithelial Cells Few /hpf (<5) Urine Bacteria Few /hpf (None Seen) Urine Mucus Few (None Seen) Urine Glucose Normal mg/dL (Normal) Urine Opiates Screen Neg (NEGATIVE) Urine Fentanyl Screen Neg (NEGATIVE) Urine Barbiturates Screen Neg (NEGATIVE) Urine Phencyclidine Screen Neg (NEGATIVE) Urine Amphetamines Screen Neg (NEGATIVE) Urine Benzodiazepines Screen Neg (NEGATIVE) Urine Cocaine Screen Neg (NEGATIVE) Urine Cannabinoids Screen Pos (NEGATIVE) D-Dimer, Quantitative 0.68 mg/L FEU (0.0-0.49) Beta HCG, Quantitative 0.2 mIU/mL (1.5-4.2) Test 04/16/25 23:43 04/16/25 20:19 Lactic Acid Level 1.7 mmol/L (0.4-2.0) Magnesium Level 2.0 mg/dL (1.6-2.6) Direct Bilirubin 0.2 mg/dL (<0.3) Thyroid Stimulating Hormone (TSH) 1.17 uIU/mL (0.55-4.78) Influenza Type A Antigen Negative (Negative) Influenza Type B Antigen Negative (Negative) SARS-CoV-2 Antigen (Rapid) Negative (NEGATIVE) Other Laboratory Tests 04/19/25 04:44 Final Diagnosis/Problems List Discharge Disposition: Home Discharge Instruct/Medications Diet: Regular Activity: No Restrictions, As Tolerated Follow Up/Referral: F/u with PCP in 7 days Scheduled Prednisone (Prednisone), 20 MG PO DAILY Prednisone (Prednisone), 20 MG PO DAILY Scheduled PRN Albuterol Sulfate (Albuterol Sulfate Hfa), 108 MCG IN Q4HPRN PRN Albuterol Sulfate (Albuterol Sulfate), 1 VIAL NEB Q4HPRN PRN Discharge Statement: "Patient was advised to return to the ER or call 911 if any headaches, dizziness, shortness of breath, chest pain, abdominal pain, bleeding, fevers, or worsening of medical condition. Patient was counseled about treatment plan, medications, possible side effects, patientverbalized understanding. All questions were answered to the best of my ability. This discharge took greater then 30 minutes in planning, reviewing documentation, counseling the patient, and discussing with other team members." ASSESSMENT ASSESSMENT Assessment JH VALENTINE RESIDENT Apr 21, 2025 16:20
--- NOTE | 2025-04-21 16:30 | DVHDSRES ---
Discharge Summary Date of Admission Resident Creating Document: JH VALENTINE RESIDENT Apr 16, 2025 at 23:02 Date of Discharge: Apr 21, 2025 Labs/Diagnostic Data: Laboratory Results Test 04/19/25 04:44 04/18/25 19:30 04/17/25 10:18 04/17/25 04:15 White Blood Count 11.0 10^3/uL (4.4-10.8) Red Blood Count 4.56 10^6/uL (4.0-5.20) Hemoglobin 14.2 g/dL (12.2-16.2) Hematocrit 41.4 % (36.0-46.0) Mean Corpuscular Volume 90.7 fL (80.0-100.0) Mean Corpuscular Hemoglobin 31.2 pg (28.0-32.0) Mean Corpuscular Hemoglobin Concent 34.4 g/dL (32.0-36.0) Red Cell Distribution Width 16.0 % (11.8-14.3) Platelet Count 206 10^3/uL (140-450) Mean Platelet Volume 10.7 fL (6.9-10.8) Neutrophils (%) (Auto) 89.0 % (37.0-80.0) Lymphocytes (%) (Auto) 9.5 % (10.0-50.0) Monocytes (%) (Auto) 1.4 % (0.0-12.0) Eosinophils (%) (Auto) 0.0 % (0.0-7.0) Basophils (%) (Auto) 0.1 % (0.0-2.0) Neutrophils # (Auto) 9.8 10 ^3/uL (1.6-8.6) Lymphocytes # (Auto) 1.0 10 ^3/uL (0.4-5.4) Monocytes # (Auto) 0.2 10 ^3/uL (0-1.3) Eosinophils # (Auto) 0 10 ^3/uL (0-0.8) Basophils # (Auto) 0 10 ^3/uL (0-0.2) Nucleated Red Blood Cells 0.0 % Sodium Level 142 mmol/L (136-145) Potassium Level 4.1 mmol/L (3.5-5.1) Chloride Level 107 mmol/L (98-107) Carbon Dioxide Level 23 mmol/L (20-31) Anion Gap 12 (5-15) Blood Urea Nitrogen 10 mg/dL (9-23) Creatinine 0.95 mg/dL (0.550-1.02) Glomerular Filtration Rate Calc 87 mL/min (>90) BUN/Creatinine Ratio 10.5 (10.0-20.0) Serum Glucose 108 mg/dL (74-106) Calcium Level 9.2 mg/dL (8.7-10.4) Total Bilirubin 0.3 mg/dL (0.2-1.0) Aspartate Amino Transferase (AST) 23 U/L (13-40) Alanine Aminotransferase (ALT) 15 U/L (7-40) Alkaline Phosphatase 79 U/L (46-116) Total Protein 7.8 g/dL (5.7-8.2) Albumin 4.7 g/dL (3.2-4.8) Urine Color Light-yellow (Yellow) Urine Clarity Clear (Clear) Urine pH 6.5 (5.0-9.0) Urine Specific [place] 1.025 (1.001-1.035) Urine Protein Trace (Negative) Urine Ketones Trace (Negative) Urine Blood Negative /uL (Negative) Urine Nitrite Negative (Negative) Urine Bilirubin Negative (Negative) Urine Urobilinogen Normal mg/dL (Negative) Urine Leukocyte Esterase 1+ /uL (Negative) Urine RBC 2 /hpf (0 - 4) Urine Microscopic WBC 8 /HPF (0-5) Urine Squamous Epithelial Cells Few /hpf (<5) Urine Bacteria Few /hpf (None Seen) Urine Mucus Few (None Seen) Urine Glucose Normal mg/dL (Normal) Urine Opiates Screen Neg (NEGATIVE) Urine Fentanyl Screen Neg (NEGATIVE) Urine Barbiturates Screen Neg (NEGATIVE) Urine Phencyclidine Screen Neg (NEGATIVE) Urine Amphetamines Screen Neg (NEGATIVE) Urine Benzodiazepines Screen Neg (NEGATIVE) Urine Cocaine Screen Neg (NEGATIVE) Urine Cannabinoids Screen Pos (NEGATIVE) D-Dimer, Quantitative 0.68 mg/L FEU (0.0-0.49) Beta HCG, Quantitative 0.2 mIU/mL (1.5-4.2) Test 04/16/25 23:43 04/16/25 20:19 Lactic Acid Level 1.7 mmol/L (0.4-2.0) Magnesium Level 2.0 mg/dL (1.6-2.6) Direct Bilirubin 0.2 mg/dL (<0.3) Thyroid Stimulating Hormone (TSH) 1.17 uIU/mL (0.55-4.78) Influenza Type A Antigen Negative (Negative) Influenza Type B Antigen Negative (Negative) SARS-CoV-2 Antigen (Rapid) Negative (NEGATIVE) Other Laboratory Tests 04/19/25 04:44 Brief Hx & Hospital Course: Mikaela Vila 24-year-old female with past medical history of asthma and gallstones presented with complaints of shortness of breath, dizziness, blurriness, cough with yellowish sputum, upper back pain since 2 days. She states that she was in the shower med the symptoms started. She also complained of a cold and 2-3 diarrhea episodes per day since the symptoms started. Patient reported that this is her 4th asthma exacerbation this past year. She denied chest pain, congestion, fever, chills, sick contacts, recent travel, stressors, or strenuous activity. chest x-ray Showed pulmonary vascular congestion. Venous ultrasound was negative for venous thrombosis. She was treated with azithromycin, ceftriaxone, nebulizations and steroids. Condition at Discharge: Fair Final Diagnosis/Problems List Acute asthma exacerbation Acute hypoxic respiratory failure Pneumonia likely due to gram +/- bacterial or viral Sepsis likely due to above History of gallstones Hx of nicotine dependence Active Marijuana use Obesity, BMI 35.9 Discharge Disposition: Home Discharge Instruct/Medications Diet: Regular Activity: No Restrictions, As Tolerated Follow Up/Referral: F/u with PCP in 7 days Scheduled Prednisone (Prednisone), 20 MG PO DAILY Prednisone (Prednisone), 20 MG PO DAILY Scheduled PRN Albuterol Sulfate (Albuterol Sulfate Hfa), 108 MCG IN Q4HPRN PRN Albuterol Sulfate (Albuterol Sulfate), 1 VIAL NEB Q4HPRN PRN Discharge Statement: "Patient was advised to return to the ER or call 911 if any headaches, dizziness, shortness of breath, chest pain, abdominal pain, bleeding, fevers, or worsening of medical condition. Patient was counseled about treatment plan, medications, possible side effects, patientverbalized understanding. All questions were answered to the best of my ability. This discharge took greater then 30 minutes in planning, reviewing documentation, counseling the patient, and discussing with other team members." ASSESSMENT ASSESSMENT Assessment Date of Service: Apr 21, 2025 Billing Provider: SOLOMON TRUJILLO MD Common Visit Codes: [id number]/[id number] DISCH DAY >30min JH VALENTINE RESIDENT Apr 21, 2025 16:30 SOLOMON TRUJILLO MD Apr 23, 2025 18:50
--- NOTE | 2025-04-21 22:54 | DVHPN2 ---
Subjective DOS: 04/21/2025 Patient seen and examined at bedside. Remains on supplemental oxygen Overnight events reviewed. Changes from previous H/P or p: No Changes Objective Vitals Vital Signs Date Time Temp Pulse Resp B/P (MAP) Pulse Ox O2 Delivery O2 Flow Rate FiO2 04/21/25 14:09 37.1 04/21/25 13:00 89 17 129/87 (101) 94 04/21/25 10:18 Nasal Cannula 1.0 04/21/25 10:18 24 Intake/Output Intake and Output 04/21/25 07:00 Intake Total 1610 ml Balance 1610 ml Intake Oral 1060 ml IV Total 550 ml # Voids 20 # Bowel Movements 1 Exam Gen.: Patient lying in bed in no apparent distress. On supplemental oxygen. Head: Normocephalic, atraumatic. Eyes: EOMI/PERRLA. Ears: Normal hearing. Normal anatomy. Neck/trachea: Trachea midline, supple. Nose: Normal external anatomy. Mouth: Moist mucous membranes. Chest: Decreased air entry bilaterally. Wheezing. No rhonchi. Cardiovascular: Positive S1, positive S2. Regular rate and rhythm. Abdomen: Positive bowel sounds in all 4 quadrants. Soft, non-tender, non- distended. : Deferred. Rectal: Deferred. Skin: Warm, dry. Intact. Extremities: 2+ radial pulses bilaterally. No lower extremity edema. Neuro: Awake, alert, oriented x3. No gross motor or sensory deficits. Cranial nerves II through XII intact. Gait not assessed. Laboratory Results Laboratory Tests 04/19/25 04:44 Urinalysis Test 04/18/25 19:30 Urine Color Light-yellow (Yellow) Urine Clarity Clear (Clear) Urine pH 6.5 (5.0-9.0) Urine Specific [place] 1.025 (1.001-1.035) Urine Protein Trace (Negative) H Urine Ketones Trace (Negative) Urine Blood Negative /uL (Negative) Urine Nitrite Negative (Negative) Urine Bilirubin Negative (Negative) Urine Urobilinogen Normal mg/dL (Negative) Urine Leukocyte Esterase 1+ /uL (Negative) Urine RBC 2 /hpf (0 - 4) Urine Microscopic WBC 8 /HPF (0-5) H Urine Squamous Epithelial Cells Few /hpf (<5) Urine Bacteria Few /hpf (None Seen) H Urine Mucus Few (None Seen) Urine Glucose Normal mg/dL (Normal) Microbiology Microbiology Date/Time Source Procedure Growth Status 04/20/25 10:16 Voided Urine Urine Culture - Preliminary Resulted 04/16/25 23:54 Blood Blood Culture - Preliminary NO GROWTH AFTER 72 HOURS OF INCUBATION. Resulted Assessment/Plan Assessment/Plan Impression: Acute hypoxic respiratory failure 2/2 asthma exacerbation Asthma exacerbation Sepsis Pneumonia, likely gram-negative. Hx of nicotine dependence Marijuana use Obesity, BMI 35.9 Events: Improved oxygen requirements Breathing on room air Supplemental oxygen PRN No distress. No acute overnight events. Patient is feeling better Wheezing is improving Continue bronchodilators Recommend to discontinue on ICS/LABA vs. ICS/JAH - currently only on Ventolin for shortness of breath PRN. Continue IV steroids - complete course. Continue antibiotics Blood cultures show no growth after 72 hours Incentive spirometry Monitor renal function Monitor electrolytes, supplement as necessary Patient is stable for discharge from the pulmonary standpoint once off supplemental oxygen. Disposition per hospitalist. Follow up in 1-2 weeks in Pulmonary Clinic, [facility]. Labs and imaging reviewed. Rest of plan as noted below. Plan: Supplemental oxygen PRN Titrate to keep O2 sats above 92%. Chest x-ray on 04/16 shows pulmonary vascular congestion. Bronchodilators. Antibiotics Follow up cultures Continue steroids - complete course. Recommend diet and lifestyle modifications for weight reduction Obesity complicates all care Monitor renal function. Monitor electrolytes. Supplement as necessary. Monitor ins and outs. DVT prophylaxis. Prognosis: Poor given patient's multiple co-morbidities. Rest of plan per hospitalist and other consultants. Thank you, Dr. Goins, for allowing me to participate in this patient's care. Further recommendations will depend on the patient's clinical course. Please do not hesitate to contact me if you have any questions or concerns. This medical document was created using an electronic medical record system with [employer] dictation system. Although these documentations are being carefully reviewed, there may still be some phonetic and typographical changes. The errors are purely typographical, due to imperfection on the software program, and do not reflect any compromise in the patient's medical care. Plan discussed with: Patient, Other (RN) Visit Coding Pulmonary Billing Provider: NATY PIÑA MD Date of Service if different f: Apr 21, 2025 Common Visit Codes: [id number] INP/OBS CARE(HIGH) NATY PIÑA MD Apr 21, 2025 22:54
== END 2025-04-21 16:40 | disposition home or self-care (01) | DRG 720 ==
LOC: ER 18:25 → OVERFLOW 23:02 → TELE-WESTW 04-17 14:40 → WEST WING 04-19 11:31
PROVIDERS: ADMIT Internal Medicine Geriatric Medicine; ATTEND Internal Medicine Geriatric Medicine
DX: A41.59 Other Gram-negative sepsis (principal); J96.01 Acute respiratory failure with hypoxia; E87.20 Acidosis, unspecified; J15.69 Pneumonia due to other Gram-negative bacteria; J15.9 Unspecified bacterial pneumonia; Z20.822 Contact with and (suspected) exposure to COVID-19; J45.901 Unspecified asthma with (acute) exacerbation; E66.9 Obesity, unspecified; J12.9 Viral pneumonia, unspecified; F12.90 Cannabis use, unspecified, uncomplicated; Z68.35 Body mass index [BMI] 35.0-35.9, adult; Z87.891 Personal history of nicotine dependence; Z79.899 Other long term (current) drug therapy
CPT/HCPCS: 36415; 71046; 80048; 80053; 80076; 80307; 81001; 83605; 83735; 84443; 84702; 85025; 85379; 87040; 87086; 87426; 87804; 93970; 94618; 94640; 96372; G0378; J1100; J1885

== ENCOUNTER 2025-06-09 22:29 | Emergency (ER) | payer MEDICAID ==
[~2025-06-09] VITALS: Ht 157.5 cm; Wt 76.9 kg
[~2025-06-09 22:29] MED LIST changes: +ALBU0.084 NEB
--- NOTE | 2025-06-09 23:07 | ED.PDOC ---
History of Present Illness HPI Comments 24-year-old female who came to ER for abdominal pain. Patient does have history of asthma. He has for the past 2 days she has been having cough and shortness of breath and wheezing. Albuterol inhalers offered temporary relief. Patient has been complaining of epigastric abdominal pain also associated bouts of nausea and vomiting. States she could not keep anything in and she feels dehydrated. Also complaining of chills, dizziness, she states her last bowel movement was 4 days ago REVIEW OF SYSTEMS: General: No fever, no chills, or fatigue HEENT: No sore throat, no earache, no congestion, no neck pain. Cardiac: No chest pain. No palpitations. Lungs: (+) shortness of breath, (+) cough. (+) wheezing GI: (+) nausea, (+) vomiting, no diarrhea, no constipation, (+) abdominal pain : No dysuria, frequency, or urgency. No hematuria. Musculoskeletal: No joint pain , no joint swelling, no extremity edema. Skin: No rash, no itching. Neuro: No headache, no dizziness, no weakness EXAM: General: Awake, alert and oriented. No acute distress. Skin: Skin in warm, dry and intact. Appropriate color for ethnicity. HEENT: The head is normocephalic and atraumatic. Conjunctivae are clear without exudates or hemorrhage. Sclera is non-icteric. EOM are intact. No signs of nystagmus. Eyelids are normal in appearance without swelling or lesions. Oral mucosa is pink and moist Neck: The neck is supple with normal range of motion. No JVD. Cardiac: Heart rate and rhythm are normal. No murmurs, gallops, or rubs are auscultated. Respiratory: No signs of respiratory distress. Lung sounds are clear in all lobes bilaterally without rales, rhonchi, or wheezes. Abdominal: Abdomen is soft, non-tender without distention. Bowel sounds are present and normoactive in all four quadrants. Extremities: Upper and lower extremities are atraumatic in appearance without deformity or edema. Neurological: The patient is awake, alert and oriented to person, place, and time with normal speech. Speech is clear. There is no facial asymmetry. Psychiatric: Appropriate mood and affect. Good judgement and insight Chief Complaint: Abdominal Pain Time Seen by MD: 23:06 Reviewed Notes: Nurses Notes Allergies: Coded Allergies: NO KNOWN ALLERGIES (Unverified , 04/13/24) Home Meds Active Scripts Prednisone (Prednisone) 20 Mg Tab, 20 MG PO DAILY for 4 Days, #4 MG Prov:RACHELE DE LUNA MD 04/16/25 Albuterol Sulfate (Albuterol Sulfate) 0.083 % Neb, 1 VIAL NEB Q4HPRN PRN for 5 Days, #5 VIAL Prov:RACHELE DE LUNA MD 04/16/25 Prednisone (Prednisone) 20 Mg Tab, 20 MG PO DAILY for 5 Days, #5 TAB Prov:JUANA NORTON DO 04/21/24 Albuterol Sulfate (Albuterol Sulfate Hfa) 108 Mcg/Act Aer, 108 MCG IN Q4HPRN PRN for 20 Days, #1 AER Prov:JUANA NORTON DO 04/21/24 Information Source: Patient Mode of Arrival: Ambulatory Past Medical History PAST MEDICAL HISTORY: Asthma Surgical History: Denies all surgeries SYSTEM ANALYST History: Denies all SYSTEM ANALYST Hx Family History Family History: Unknown Social History Smoker: Cigarettes Alcohol: Denies ETOH Use Drugs: Denies Drug Use Lives In: Home Was a procedure done? Was a procedure done?: No Differential Dx Considerations may include: Asthma, gastritis, dehydration, urinary tract infection, abdominal pain X-Ray, Labs, Meds, VS Vital Signs Date Time Temp Pulse Resp B/P (MAP) Pulse Ox O2 Delivery O2 Flow Rate FiO2 06/09/25 23:57 108 17 95 Room Air 06/09/25 23:57 98.5 108 17 129/92 (104) 95 98.5 06/09/25 22:36 98.2 107 18 160/88 97 98.2 Lab Test 06/09/25 23:46 06/09/25 23:45 06/09/25 23:15 Range/Units Influenza Type A Antigen Negative Negative Influenza Type B Antigen Negative Negative SARS-CoV-2 Antigen (Rapid) Negative NEGATIVE Urine Color Yellow Yellow Urine Clarity Turbid H Clear Urine pH 6.0 5.0-9.0 Urine Specific [place] 1.039 H 1.001-1.035 Urine Protein 1+ H Negative Urine Ketones 3+ H Negative Urine Blood Negative Negative /uL Urine Nitrite Negative Negative Urine Bilirubin Negative Negative Urine Urobilinogen 2 H Negative mg/dL Urine Leukocyte Esterase Negative Negative /uL Urine RBC 2 0 - 4 /hpf Urine Microscopic WBC 4 0-5 /HPF Urine Squamous Epithelial Cells Few <5 /hpf Urine Bacteria None seen None Seen /hpf Urine Mucus Moderate None Seen Urine Glucose Normal Normal mg/dL Urine Test Negative Negative White Blood Count 5.6 4.4-10.8 10^3/uL Red Blood Count 4.53 4.0-5.20 10^6/uL Hemoglobin 14.3 12.2-16.2 g/dL Hematocrit 42.7 36.0-46.0 % Mean Corpuscular Volume 94.4 80.0-100.0 fL Mean Corpuscular Hemoglobin 31.6 28.0-32.0 pg Mean Corpuscular Hemoglobin Concent 33.4 32.0-36.0 g/dL Red Cell Distribution Width 15.3 H 11.8-14.3 % Platelet Count 224 140-450 10^3/uL Mean Platelet Volume 10.1 6.9-10.8 fL Neutrophils (%) (Auto) 83.1 H 37.0-80.0 % Lymphocytes (%) (Auto) 9.8 L 10.0-50.0 % Monocytes (%) (Auto) 6.2 0.0-12.0 % Eosinophils (%) (Auto) 0.7 0.0-7.0 % Basophils (%) (Auto) 0.2 0.0-2.0 % Neutrophils # (Auto) 4.6 1.6-8.6 10 ^3/uL Lymphocytes # (Auto) 0.5 0.4-5.4 10 ^3/uL Monocytes # (Auto) 0.3 0-1.3 10 ^3/uL Eosinophils # (Auto) 0 0-0.8 10 ^3/uL Basophils # (Auto) 0 0-0.2 10 ^3/uL Nucleated Red Blood Cells 0.0 % Sodium Level 145 136-145 mmol/L Potassium Level 3.7 3.5-5.1 mmol/L Chloride Level 112 H 98-107 mmol/L Carbon Dioxide Level 18 L 20-31 mmol/L Anion Gap 15 5-15 Blood Urea Nitrogen 7 L 9-23 mg/dL Creatinine 0.89 0.550-1.02 mg/dL Glomerular Filtration Rate Calc 94 >90 mL/min BUN/Creatinine Ratio 7.9 L 10.0-20.0 Serum Glucose 99 74-106 mg/dL Calcium Level 9.8 8.7-10.4 mg/dL Troponin I High Sensitivity < 3 L </=34 ng/L Lipase 22 12-53 U/L Current Medications Medications (Trade) Dose Ordered Sig/Neno Route Start Time Stop Time Status Last Admin Ondansetron HCl (Zofran Po) 4 mg ONCE ONCE PO 06/09/25 23:15 06/09/25 23:16 DC 06/09/25 23:54 Guaifenesin/ Codeine Phosphate (Robitussin/ Codeine Liq) 5 ml ONCE ONCE PO 06/09/25 23:15 06/09/25 23:16 DC 06/09/25 23:54 CHEST RADIOGRAPH INDICATION: Cough, shortness of breath TECHNIQUE: Single frontal view of the chest was obtained COMPARISON: XY CHEST TWO VIEWS ROUTINE on DOS: 04/16/25, XY CHEST PORTABLE on DOS: 04/20/24, XY CHEST XRAY 1 VIEW on DOS: 04/13/24 FINDINGS: Lungs and pleural spaces are clear. Cardiac silhouette and rebecca are within normal limits. Bones and soft tissues demonstrate no significant abnormality. IMPRESSION: No acute disease. Time of 1ST Reevaluation: 23:04 Reevaluation 1ST: Unchanged Patient Education/Counseling: Need For Follow Up Family Education/Counseling: No Family Present SEPSIS Sepsis Screen Date sepsis recognized/suspect: Jun 09, 2025 Time Sepsis recognized/suspect: 2236 Recent Procedure: No On Antibiotic Therapy: No Respiratory Rate >20: No Heart Rate >90: Yes Temp<36 C (96.8 F) or >38.3 C: No SBP <90 or MAP <65 mmHG: No New Acute Mental Status Change: No Is the patient on CPAP, BIPAP,: No Physician Orders Chest Xray 1 View (06/09/25 23:02) Po Trial (06/09/25 ) Vital Signs Date Time Temp Pulse Resp B/P (MAP) Pulse Ox O2 Delivery O2 Flow Rate FiO2 06/09/25 23:57 108 17 95 Room Air 06/09/25 23:57 98.5 108 17 129/92 (104) 95 98.5 06/09/25 22:36 98.2 107 18 160/88 97 98.2 Laboratory Tests Test 06/09/25 23:15 White Blood Count 5.6 10^3/uL (4.4-10.8) Medications Medications Dose Ordered Sig/Neno Route Start Time Stop Time Status Last Admin Dose Admin Guaifenesin/ Codeine Phosphate 5 ml ONCE ONCE PO 06/09/25 23:15 06/09/25 23:16 DC 06/09/25 23:54 Ondansetron HCl 4 mg ONCE ONCE PO 06/09/25 23:15 06/09/25 23:16 DC 06/09/25 23:54 Departure 1 Departure Time of Disposition: 02:12 Impression: Primary Impression: Nausea & vomiting Additional Impression: Shortness of breath Disposition: 01 HOME / SELF CARE / HOMELESS Condition: Stable Additional Instructions: ED DISCHARGE INSTRUCTIONS Instructions: Please read all instructions provided in this packet carefully. Although you have been discharged from the Emergency Department, this does not mean that you have a "clean bill of health" No definitive diagnosis for your symptoms has been made today. It is possible that you are in the process of developing a serious illness. This is why you must return to the ED without fail if any new or worsening symptoms (especially if your symptoms include chest pain, trouble breathing, abdominal pain, fever, headache, confusion, trouble seeing, or trouble walking) It is also very important that you see a primary care provider (PCP) within the next 1-3 days to follow up.. No If you are unable to get an appointment, return to the ED for re-evaluation. SHORTNESS OF BREATH EDUCATION Shortness of breath has many causes. Sometimes conditions such as anxiety can lead to shortness of breath. Some people get mild shortness of breath when they exercise. Trouble breathing also can be a symptom of a serious problem, such as asthma, lung disease, emphysema, heart problems, and pneumonia. If your shortness of breath continues, you may need tests and treatment. Watch for any changes in your breathing and other symptoms. Follow-up care is a harper part of your treatment and safety. Be sure to make and go to all appointments, and call your doctor if you are having problems. It's also a good idea to know your test results and keep a list of the medicines you take. How can you care for yourself at home? Do not smoke or allow others to smoke around you. If you need help quitting, talk to your doctor about stop-smoking programs and medicines. These can increase your chances of quitting for good. Get plenty of rest and sleep. Take your medicines exactly as prescribed. Call your doctor if you think you are having a problem with your medicine. Find healthy ways to deal with stress. Exercise daily. Get plenty of sleep. Eat regularly and well. When should you call for help? Call 911 anytime you think you may need emergency care. For example, call if: You have severe shortness of breath. You have symptoms of a heart attack. These may include: Chest pain or pressure, or a strange feeling in the chest. Sweating. Shortness of breath. Nausea or vomiting. Pain, pressure, or a strange feeling in the back, neck, jaw, or upper belly or in one or both shoulders or arms. Lightheadedness or sudden weakness. A fast or irregular heartbeat. After you call 911, the tower excavator operator may tell you to chew 1 adult-strength or 2 to 4 low-dose aspirin. Wait for an ambulance. Do not try to drive yourself. Call your doctor now or seek immediate medical care if: Your shortness of breath gets worse or you start to wheeze. Wheezing is a high- pitched sound when you breathe. You wake up at night out of breath or have to prop your head up on several pillows to breathe. You are short of breath after only light activity or while at rest. Watch closely for changes in your health, and be sure to contact your doctor if: You do not get better over the next 1 to 2 days. Credits for Shortness of Breath: Care Instructions Current as of: January 20, 2024 Author: [employer] Ondansetron Odt 4MG Tab (ZOFRAN PO) 4 Mg Tb 4 MG PO TIDPRN PRN for 3 Days, #9 TAB ODT TAB-DISSOLVE IN MOUTH, THEN SWALLOW Prov: RACHELE DE LUNA MD 06/10/25 Benzonatate (Benzonatate) 100 Mg Cap 1-2 CAP PO Q4HR, #60 CAP Prov: RACHELE DE LUNA MD 06/10/25 Comments 24-year-old female with shortness of breath, abdominal pain, nausea and vomiting. Patient is well-appearing, nontoxic. Patient's symptoms improved during the ED observation. Vital signs stable. Diagnostic results reviewed and are not urgently actionable. Patient is felt stable for discharge home. Patient advised to follow up with primary care provider promptly and return to the emergency department with any new, worsening or concerning symptoms. Critical Care Note Critical Care Time?: No Stability Stability form required: No Heart Score Heart Score: Heart Score Response (Comments) Value History N/A 0 EKG N/A 0 Age N/A 0 Risk Factors N/A 0 Troponin N/A 0 Total 0 I personally scribed for RACHELE DE LUNA MD ([email or web address]) on 06/09/25 at 23:07. Electronically submitted by Quinten Correa ([employer]). I personally scribed for RACHELE DE LUNA MD ([email or web address]) on 06/10/25 at 01:10. Electronically submitted by Quinten Correa ([employer]). RACHELE DE LUNA MD Jun 09, 2025 23:07
[2025-06-09 23:34] LABS: Hematocrit 42.7 % (36.0-46.0); Hemoglobin 14.3 g/dL (12.2-16.2); Mean Corpuscular Hemoglobin 31.6 pg (28.0-32.0); Mean Corpuscular Volume 94.4 fL (80.0-100.0); Nucleated Red Blood Cells % 0.0 %
[2025-06-09 23:40] LABS: Potassium 3.7 mmol/L (3.5-5.1)
[2025-06-09 23:41] LABS: Anion Gap 15 (5-15); Calcium 9.8 mg/dL (8.7-10.4)
[2025-06-09 23:43] LABS: Carbon Dioxide 18 mmol/L (20-31); Chloride 112 mmol/L (98-107); Sodium 145 mmol/L (136-145)
[2025-06-09 23:46] LABS: BUN/Creatinine Ratio 7.9 (10.0-20.0); Glucose 99 mg/dL (74-106); Lipase 22 U/L (12-53)
[2025-06-09 23:49] LABS: Blood Urea Nitrogen 7 mg/dL (9-23)
[2025-06-09] MEDS: guaiFENesin-CODEINE Liq 5 ML UD PO ONE (23:54)
[2025-06-09] MEDS: ONDANSETRON ODT 4 MG TAB PO ONE (23:54)
--- NOTE | 2025-06-10 00:44 | DVH ---
CHEST RADIOGRAPH INDICATION: Cough, shortness of breath TECHNIQUE: Single frontal view of the chest was obtained COMPARISON: XY CHEST TWO VIEWS ROUTINE on DOS: 04/16/25, XY CHEST PORTABLE on DOS: 04/20/24, XY CHEST XRAY 1 VIEW on DOS: 04/13/24 FINDINGS: Lungs and pleural spaces are clear. Cardiac silhouette and rebecca are within normal limits. Bones and soft tissues demonstrate no significant abnormality. IMPRESSION: No acute disease.
[2025-06-10 00:54] LABS: COVID19 ANTIGEN SOFIA FIA NEGATIVE (NEGATIVE)
[2025-06-10 01:57] LABS: Urine Protein, UAD 1+ (Negative)
[2025-06-10] MEDS ORDERED: ZOFR4T PO (02:15)
[2025-06-10] MEDS ORDERED: BENZ100C97 PO (02:15)
[2025-06-10 02:55] VITALS: BP 125/90; PULSE 101; RESP 17; TEMP 98.5; O2SAT 98
== END 2025-06-10 02:56 | disposition home or self-care (01) ==
LOC: ER 22:29
DX: R11.2 Nausea with vomiting, unspecified (principal); R06.02 Shortness of breath; J45.909 Unspecified asthma, uncomplicated; F17.210 Nicotine dependence, cigarettes, uncomplicated; Z79.899 Other long term (current) drug therapy; Z20.822 Contact with and (suspected) exposure to COVID-19
CPT/HCPCS: 36415; 71045; 80048; 81001; 81025; 83690; 84484; 85025; 87426; 87804; 99284; Q0162